=== PATIENT | female | born 1985 | race Caucasian/White ===

== ENCOUNTER → 2017-07-31 19:23 | Outpatient (REF) | payer OTHER, MEDICAID, SELFPAY | LOC: LAB 19:23 | PROVIDERS: Visit Provider Family Medicine | DX: Z34.90 Encounter for supervision of normal pregnancy, unspecified, unspecified trimester (principal) | CPT/HCPCS: 87081; 87653 ==

== ENCOUNTER → 2017-08-09 09:49 | Outpatient (CLI) | payer OTHER, MEDICAID, SELFPAY ==
--- NOTE | 2017-08-09 | DI.US.S_ITS ---
PROCEDURE: US OB LIMITED INDICATIONS: SIZE GREATER THAN DATES OUTSIDE/PRIOR DATING DATA: Last menstrual period (LMP): November 17, 2016. LMP-based estimated date of delivery (CARMEN): August 24, 2017. First dating scan (date and location): January 08, 2017 at [facility]. Estimated date of delivery (CARMEN) from first dating scan: August 26, 2017. . TECHNIQUE: Real-time scanning was performed of the fetus, with image documentation and biometric measurements. Endovaginal scanning: No COMPARISON: None. FINDINGS: General: A single living intrauterine gestation is present. Presentation: Breech. Placenta: Placental position is anterior, without previa. Amniotic fluid index: 27.6 cm, normal range is 5-24 cm. heart rate: 130 beats per minute. Maternal cervical canal: Not well-seen. biometrics: Biparietal diameter: 39 weeks 2 days Head circumference: Greater than 41 weeks Abdominal circumference: 41 weeks 3 days Femur length: 38 weeks 2 days Estimated gestational age from initial scan: 37 weeks 4 days Composite gestational age from present scan: 39 weeks 5 days Estimated weight and percentile: 4158 g; 99th percentile Measurement variability for biometric dating: +/- 7 days from 14 weeks to 15 weeks 6 days gestation, +/- 10 days from 16 weeks to 21 weeks 6 days gestation, +/- 2 weeks from 22 weeks to 27 weeks 6 days gestation, +/- 3 weeks for 28 weeks gestation or later. weight reference: 4500 g or EFW >90/95% is considered macrosomia or large for gestational age. EFW <10% is small for gestational age. EFW 5% or less is considered intra-uterine growth restriction. Other: Not applicable. IMPRESSION: Single living IUP redemonstrated and interval growth is greater than expected with the estimated weight 99th percentile. Macrosomia cannot be excluded. Amniotic fluid index at the 98th percentile. Dictated by: Pa PURVISA Interpreted: Corina Driscoll MD on 08/09/2017 at 11:31 Approved by: Corina Driscoll MD, PhD on 08/10/2017 at 9:26
--- NOTE | 2017-08-09 | DI.US.S_ITS ---
PROCEDURE: US ABDOMEN COMPLETE INDICATIONS: RIGHT UPPER QUADRANT PAIN TECHNIQUE: Real-time scanning was performed of the abdominal and retroperitoneal organs, with image documentation. COMPARISON: None. FINDINGS: Liver: Liver is normal in size and homogeneous in echotexture. Gallbladder: No gallstones identified. Normal gallbladder wall. No pericholecystic fluid. Negative sonographic Jackson sign. Biliary ducts: Intrahepatic bile ducts are non-dilated. Extrahepatic bile duct caliber measures 5.2 mm. Normal is 6-7 mm or less in diameter, or 10 mm or less post-cholecystectomy. Pancreas: Visualized portions of the pancreas are sonographically normal. Spleen: Spleen is enlarged in size at 13.2 cm and homogeneous in echotexture. Rounded subcentimeter hypoechoic mass present centrally. Kidneys: Kidneys are normal in size and echotexture. Right kidney measures 11.2 cm long; left kidney measures 10.6 cm long. No hydronephrosis or nephrolithiasis. No solid masses. Aorta: Visualized aorta is normal in caliber at less than 3 cm. Iliacs: Proximal common iliac arteries are normal in caliber at less than 2.5 cm. IVC: Intrahepatic inferior vena cava is patent. Miscellaneous: No free abdominal fluid. IMPRESSION: 1. Mild sonographic splenomegaly is present and there is a subcentimeter hypoechoic focus within the spleen centrally. A mass cannot be excluded. If indicated CT could be performed for further assessment, otherwise continued sonographic surveillance is recommended. 2. No source for right upper quadrant pain identified. Dictated by: Pa IBRAHIM Interpreted: Corina Driscoll MD on 08/09/2017 at 11:27 Approved by: Corina Driscoll MD, PhD on 08/10/2017 at 9:26
== END ==
PROVIDERS: Family Provider Family Medicine; PCP Family Medicine; Visit Provider Family Medicine
DX: O36.63X0 Maternal care for excessive fetal growth, third trimester, not applicable or unspecified (principal); O26.893 Other specified pregnancy related conditions, third trimester; R10.11 Right upper quadrant pain; Z3A.39 39 weeks gestation of pregnancy
CPT/HCPCS: 76700; 76815

== ENCOUNTER 2017-08-20 18:14 | Observation (INO) | payer OTHER, MEDICAID, SELFPAY | END 2017-08-20 20:15 | disposition home or self-care (01) | PROVIDERS: Admitting Provider Family Medicine; Family Provider Family Medicine; PCP Family Medicine; Visit Provider Family Medicine | DX: Z34.83 Encounter for supervision of other normal pregnancy, third trimester (principal); Z3A.39 39 weeks gestation of pregnancy | CPT/HCPCS: 59025; 59050; G0378; G0379 ==

== ENCOUNTER 2017-08-27 18:09 | Inpatient (IN) | payer OTHER, MEDICAID, SELFPAY ==
[2017-08-27] MEDS: miSOPROStol 25 MCG TABLET VAG (19:40)
[2017-08-27 23:34] LABS: Add Manual Diff / Slide Review NO; Basophils Percent Auto 0.6 % (0-2); Eosinophils Percent Auto 0.8 % (2-4); Hematocrit 29.4 % (36-46); Hemoglobin 9.8 g/dL (12.0-16.0); Lymphocytes Percent Auto 15.4 % (25-40); Mean Corpuscular HGB Conc 33.2 % (30-36); Mean Corpuscular Hemoglobin 27.8 PG (26-34); Mean Corpuscular Volume 83.8 fL (80-100); Monocytes Percent Auto 5.5 % (3-14); Neutrophils Absolute Auto 7800 /uL (3000-5900); Neutrophils Percent Auto 77.7 % (50-75); Platelet Count 163 X10^3/uL (150-400); White Blood Cell Count 10.1 X10^3/uL (4.5-11.0)
[2017-08-28] MEDS: LACTATED RINGERS 1,000 ML 100 ML IV ×2 (05:30→06:25)
[2017-08-28 05:52] VITALS: BP 116/75; PULSE 65; RESP 16; TEMP 37
[2017-08-28 07:52] VITALS: BP 116/75; PULSE 65; RESP 16; TEMP 37
[2017-08-28] MEDS: OXYTOCIN PREMIX 30 UNIT/500 ML PLAST..BAG IV (08:20)
[2017-08-28] MEDS: ONDANSETRON 4 MG/2 ML INJ IV ×2 (09:46→20:35)
--- NOTE | 2017-08-28 13:33 | PM.OBPRVD ---
Events: Labor Induction Delivery date: 08/28/17 Intrapartal events: None Induction method: per misoprostol protocol Delivery monitor: external FHT and external uterine Route of delivery: Episiotomy description: None Laceration description: None Estimated blood loss (mL): 250 Anesthesia type: Epidural Narrative: Identifying data this is a 32-year-old at 40 and 4 7 weeks as he gestational age with suspected 9 lb or greater fetus who is brought in for cervical ripening. She had an unremarkable other than 1st trimester mom had appendectomy without knowledge of . She was referred to genetic counseling at and cell free DNA was negative XX chromosomes. Patient received 1 dose of Cytotec and had progressive uterine contractions to the point that at approximately 5:30 a.m. she was requesting an epidural and was felt to be in active labor at that time. GBS negative mom, Rh positive mom, status post Tdap, status post flu shot, normal glucose tolerance test Stage I lasted 6 hr and 37 min Patient was noted to be in active labor after 1 Cytotec dose was placed on the day prior to delivery. She was requesting epidural was found to be 5 cm dilated at approximately 5:30 a.m. and felt to be active at that time. She was having contractions every 2-3 minutes. Epidural was placed at 6:05 a.m. with excellent analgesia. She received 1 bolus during stage I. Patient was noted to be complete at 12:07 a.m. with still an intact bag of water. She had spontaneous rupture membranes at 11:30 a.m. showing clear fluid and then subsequently had delivery of the fore bag and it ruptured at that time. She was ruptured for an hour and 35 min prior to delivery and it was clear fluid. She began pushing at 12:14 p.m.. External heart monitor was used throughout this stage and showed a baseline in the 130s to 140s with accelerations and moderate variability and occasional orally variable deceleration. Category 1 tracing throughout stage I. Pitocin was begun at approximately 8:30 a.m. and maximum on a Pitocin was 6 mu Stage II lasted 51 min Mom had excellent analgesia during this stage and good pushing effort. External tocometer heart monitor were used. Contractions were every 2-4 minutes and patient was able to feel pressure. Pitocin was at 5-6 mu throughout this stage. External heart monitor showed baseline in the 120s to 140s with moderate variability with deceleration to 100 with pushing. Category 1 tracing. Mom was affectively able to push the baby down and was able to keep the baby on the perineum. Baby was delivered in RASHEL position. I palpated for cord and there was no nuchal cord and then anterior and posterior shoulder were delivered. Baby was vigorous at delivery with Apgars 8 at 1 min and 9 at 5 min. Weight is pending. Baby was suctioned on mom's chest but was able to cry and clear airway on her own. There was an intact perineum. There were no cervical or vaginal tears. There is a very small skid musa right periurethral that was not bleeding and was not fixed. Stage III lasted 5 min Normal spontaneous vaginal delivery of an intact mildly calcified placenta with a central cord insertion and a 3 vessel cord. There was 250 cc of blood loss. There were no vaginal, cervical or perineal lacerations. Sponge and needle count were accurate and at the time of this dictation both mom and baby are in stable condition Plan for aftercare: with mom, at breast
--- NOTE | 2017-08-28 13:45 | PM.OBHP.1 ---
OB HPI History of Present Illness Chief complaint: LABOR AND DELIVERY Narrative: Dennis Martines is a 32 year old female is 40 and 4 7 weeks estimated gestational age based on LMP and 1st trimester ultrasound who presents to Labor and delivery for cervical ripening. She has suspected macrosomic baby but otherwise unremarkable . Unremarkable other than 1st trimester had appendectomy before she knew she was . She was sent to [facility] for genetic counseling. They did not have other recommendations. She had cell free DNA performed which showed normal XX chromosome. She had a normal 20 week ultrasound. Serology was negative. She is Rh positive, antibody screen negative, GBS negative, normal glucose tolerance test, negative hepatitis-B, hepatitis-C, VDRL, GC and Chlamydia, Pap smear, HIV. Evaluation Evaluation Laboratory results: Laboratory Tests 08/27/17 08/27/17 23:15 23:15 WBC 10.1 RBC 3.50 L Hgb 9.8 L Hct 29.4 L MCV 83.8 MCH 27.8 MCHC 33.2 RDW 16.0 H Plt Count 163 Neut % (Auto) 77.7 H Lymph % (Auto) 15.4 L [place] % (Auto) 5.5 Eos % (Auto) 0.8 L Baso % (Auto) 0.6 Neut # (Auto) 7800 H Blood Type A Positive Antib[facility] Screen [facility] Social History Smoking Status: Never smoker Meds Home Medications Medication Instructions Recorded Confirmed Type Vitamins (PRENAVITE) 1 tab PO QDAY #0 12/28/15 08/27/17 History acyclovir 300 mg PO TID 08/20/17 08/27/17 History ferrous sulfate 1 tab PO BID 08/20/17 08/27/17 History ranitidine HCl 1 tab PO BID 08/20/17 08/27/17 History Allergies Allergy/AdvReac Type Severity Reaction Status Date / Time loratadine [LORATADINE] Allergy Severe Anaphylaxis Verified 08/27/17 20:30 nortriptyline [NORTRIPTYLINE] Allergy Severe Anaphylaxis Verified 08/27/17 20:30 soy [SOY] Allergy Severe Anaphylaxis Verified 08/27/17 20:30 codeine [CODEINE] Allergy Intermediate Vomiting Verified 08/27/17 20:30 egg Allergy Intermediate Nausea Verified 08/27/17 20:30 hydrocodone [From VICODIN] Allergy Intermediate Vomiting Verified 08/27/17 20:30 oxycodone [OXYCODONE] Allergy Intermediate Vomiting Verified 08/27/17 20:30 prochlorperazine Allergy Intermediate Vomiting Verified 08/27/17 20:30 [PROCHLORPERAZINE] Sulfa (Sulfonamide Allergy Intermediate Hives Verified 08/27/17 20:30 Antibiotics) [SULFA (SULFONAMIDE ANTIBIOTICS)] trimethoprim [TRIMETHOPRIM] Allergy Intermediate Vomiting Verified 08/27/17 20:30 mirtazapine [MIRTAZAPINE] Allergy Unknown Vomiting Unverified 08/20/17 18:39 Review of Systems Review of Systems No change in discharge. No leaking, no bleeding, baby has been active. Occasional headaches but no abdominal pain. Occasional contractions but nothing regular. No change in swelling of lower extremities and no upper extremity swelling. All systems reviewed & are unremarkable except as noted in HPI and below Exam Narrative Exam Narrative: Afebrile, vital signs are stable HEENT: Unremarkable other than poor dentition Neck: Supple without thyromegaly Chest: Clear to auscultation without wheezes rhonchi or crackles Cor: Regular rate and rhythm without a murmur Abdomen: Gravid, vertex, estimated weight 9 lb Extremities: 1 to 2+ pitting edema, DTRs 3+ at the patella, no clonus Cervical exam 7 cm dilated, 100% effaced, ballotable with a large amount a room behind baby's head through the cervix and had not well applied to cervix The heart tones baseline 130 to 140s with moderate variability and accelerations without decelerations; category 1 tracing Objective Labs Result Diagrams: 08/27/17 23:15 Labs: Laboratory Results - last 24 hr 08/27/17 08/27/17 23:15 23:15 WBC 10.1 RBC 3.50 L Hgb 9.8 L Hct 29.4 L MCV 83.8 MCH 27.8 MCHC 33.2 RDW 16.0 H Plt Count 163 Neut % (Auto) 77.7 H Lymph % (Auto) 15.4 L [place] % (Auto) 5.5 Eos % (Auto) 0.8 L Baso % (Auto) 0.6 Neut # (Auto) 7800 H Blood Type A Positive Antibody Screen Negative Assessment and Plan Plan: Plan: 32-year-old at 40 and 4 7 weeks estimated gestational age with good dates in early active labor Will begin Pitocin Baby is still very high and so we will wait till comes down before perform artificial rupture of membranes Will continue with epidural. Category 1 tracing. Will continue with external heart monitor and tocometer GBS negative mom. Rh positive mom
--- NOTE | 2017-08-28 13:53 | P.HPOB_ITS ---
OB HPI History of Present Illness Chief complaint: LABOR AND DELIVERY Narrative: Dennis Martines is a 32 year old female is 40 and 4 7 weeks estimated gestational age based on LMP and 1st trimester ultrasound who presents to Labor and delivery for cervical ripening. She has suspected macrosomic baby but otherwise unremarkable . Unremarkable other than 1st trimester had appendectomy before she knew she was . She was sent to [facility] for genetic counseling. They did not have other recommendations. She had cell free DNA performed which showed normal XX chromosome. She had a normal 20 week ultrasound. Serology was negative. She is Rh positive, antibody screen negative, GBS negative, normal glucose tolerance test, negative hepatitis-B, hepatitis-C, VDRL, GC and Chlamydia, Pap smear, HIV. Evaluation Evaluation Laboratory results: Laboratory Tests 08/27/17 08/27/17 23:15 23:15 WBC 10.1 RBC 3.50 L Hgb 9.8 L Hct 29.4 L MCV 83.8 MCH 27.8 MCHC 33.2 RDW 16.0 H Plt Count 163 Neut % (Auto) 77.7 H Lymph % (Auto) 15.4 L [place] % (Auto) 5.5 Eos % (Auto) 0.8 L Baso % (Auto) 0.6 Neut # (Auto) 7800 H Blood Type A Positive Antibody Screen [facility] Social History Smoking Status: Never smoker Meds Home Medications Medication Instructions Recorded Confirmed Type Vitamins (PRENAVITE) 1 tab PO QDAY #0 12/28/15 08/27/17 History acyclovir 300 mg PO TID 08/20/17 08/27/17 History ferrous sulfate 1 tab PO BID 08/20/17 08/27/17 History ranitidine HCl 1 tab PO BID 08/20/17 08/27/17 History Allergies Allergy/AdvReac Type Severity Reaction Status Date / Time loratadine [LORATADINE] Allergy Severe Anaphylaxis Verified 08/27/17 20:30 nortriptyline [NORTRIPTYLINE] Allergy Severe Anaphylaxis Verified 08/27/17 20:30 soy [SOY] Allergy Severe Anaphylaxis Verified 08/27/17 20:30 codeine [CODEINE] Allergy Intermediate Vomiting Verified 08/27/17 20:30 egg Allergy Intermediate Nausea Verified 08/27/17 20:30 hydrocodone [From VICODIN] Allergy Intermediate Vomiting Verified 08/27/17 20:30 oxycodone [OXYCODONE] Allergy Intermediate Vomiting Verified 08/27/17 20:30 prochlorperazine Allergy Intermediate Vomiting Verified 08/27/17 20:30 [PROCHLORPERAZINE] Sulfa (Sulfonamide Allergy Intermediate Hives Verified 08/27/17 20:30 Antibiotics) [SULFA (SULFONAMIDE ANTIBIOTICS)] trimethoprim [TRIMETHOPRIM] Allergy Intermediate Vomiting Verified 08/27/17 20: 30 mirtazapine [MIRTAZAPINE] Allergy Unknown Vomiting Unverified 08/20/17 18:39 Review of Systems Review of Systems No change in discharge. No leaking, no bleeding, baby has been active. Occasional headaches but no abdominal pain. Occasional contractions but nothing regular. No change in swelling of lower extremities and no upper extremity swelling. All systems reviewed & are unremarkable except as noted in HPI and below Exam Narrative Exam Narrative: Afebrile, vital signs are stable HEENT: Unremarkable other than poor dentition Neck: Supple without thyromegaly Chest: Clear to auscultation without wheezes rhonchi or crackles Cor: Regular rate and rhythm without a murmur Abdomen: Gravid, vertex, estimated weight 9 lb Extremities: 1 to 2+ pitting edema, DTRs 3+ at the patella, no clonus Cervical exam 7 cm dilated, 100% effaced, ballotable with a large amount a room behind baby's head through the cervix and had not well applied to cervix The heart tones baseline 130 to 140s with moderate variability and accelerations without decelerations; category 1 tracing Objective Labs Result Diagrams: 08/27/17 23:15 Labs: Laboratory Results - last 24 hr 08/27/17 08/27/17 23:15 23:15 WBC 10.1 RBC 3.50 L Hgb 9.8 L Hct 29.4 L MCV 83.8 MCH 27.8 MCHC 33.2 RDW 16.0 H Plt Count 163 Neut % (Auto) 77.7 H Lymph % (Auto) 15.4 L [place] % (Auto) 5.5 Eos % (Auto) 0.8 L Baso % (Auto) 0.6 Neut # (Auto) 7800 H Blood Type A Positive Antibody Screen Negative Assessment and Plan Plan: Plan: 32-year-old at 40 and 4 7 weeks estimated gestational age with good dates in early active labor Will begin Pitocin Baby is still very high and so we will wait till comes down before perform artificial rupture of membranes Will continue with epidural. Category 1 tracing. Will continue with external heart monitor and tocometer GBS negative mom. Rh positive mom
[2017-08-28] MEDS: IBUPROFEN 600 MG TABLET PO ×2 (17:39→23:52)
[2017-08-28] MEDS: METHYLERGONOVINE 0.2 MG TABLET PO (19:21)
[2017-08-29] MEDS: METHYLERGONOVINE 0.2 MG TABLET PO ×2 (02:02→07:34)
[2017-08-29 06:31] LABS: Add Manual Diff / Slide Review NO; Basophils Percent Auto 0.4 % (0-2); Eosinophils Percent Auto 0.6 % (2-4); Hematocrit 27.3 % (36-46); Lymphocytes Percent Auto 12.9 % (25-40); Mean Corpuscular HGB Conc 32.8 % (30-36); Mean Corpuscular Hemoglobin 27.3 PG (26-34); Mean Corpuscular Volume 83.2 fL (80-100); Monocytes Percent Auto 5.5 % (3-14); Neutrophils Absolute Auto 9700 /uL (3000-5900); Neutrophils Percent Auto 80.6 % (50-75); Platelet Count 151 X10^3/uL (150-400); Red Blood Cell Count 3.29 X10^6/uL (4.0-5.2); Red Cell Distribution Width 15.6 % (11.6-14.8)
[2017-08-29] MEDS: IBUPROFEN 600 MG TABLET PO ×2 (07:34→13:34)
[2017-08-29] MEDS: DOCUSATE 250 MG CAPSULE PO (09:29)
[2017-08-29] MEDS: FERROUS GLUCONATE 324 MG TABLET PO (09:29)
[2017-08-29] MEDS: PRENATAL VIT,CALC/IRON/FOLIC 1 TABLET 1 TAB PO (09:29)
--- NOTE | 2017-08-29 09:43 | PM.DS.1 ---
History of Present Illness Date Patient Seen: 08/29/17 Time Patient Seen: 09:43 Chief complaint: LABOR AND DELIVERY Narrative: See H&P and delivery note Discharge Providers Date of admission: 08/27/17 18:09 Primary care physician: Rosa Peralta MD Consults: 08/27/17 19:52 Consult to Anesthesiology Urgent Comment: Consulting Provider: Franki Villanueva Reason For Exam: Preoperative evaluation Reason for consultation: pain management 08/28/17 13:22 Consult to Nuclear Physician Routine Comment: Discharge provider: Bridger Ceja MD Summary Discharge Diagnosis: Term now delivered related anemia. History of medication intolerance. Esophageal reflux History of herpes Hospital Course: Admitted in active labor monitored expectantly, received epidural analgesia delivered a large baby without complications. Has done well some pain difficult to control because of medication intolerance but managing. Also choosing to nurse and that is a bit fitful but okay. Had fairly heavy persistent bleeding early on but that has settled down fairly normal output at this point. Anxious for discharge. Status at Discharge Cognitive/behavioral status at discharge: Normal Functional status at discharge: independent ambulation Overall status at discharge: patient is back to baseline Time Spent with Patient Greater than 30 minutes Exam Narrative Exam Narrative: Healthy appearing in no acute distress sitting up in bed conversing appropriately. Head and neck is benign chest is clear heart regular without murmur abdomen soft findings firm at umbilicus slight tender. Extremities without edema, normal reflexes skin clear. Hematocrit dropped about 2 points over night. Objective Labs Result Diagrams: 08/29/17 06:20 Labs: Laboratory Results - last 24 hr 08/29/17 06:20 WBC 12.0 H RBC 3.29 L Hgb 9.0 L Hct 27.3 L MCV 83.2 MCH 27.3 MCHC 32.8 RDW 15.6 H Plt Count 151 Neut % (Auto) 80.6 H Lymph % (Auto) 12.9 L [place] % (Auto) 5.5 Eos % (Auto) 0.6 L Baso % (Auto) 0.4 Neut # (Auto) 9700 H Discharge Plan Discharge Plan Patient Disposition: Home, Self-Care Discharge Med Rec/Prescriptions Prescriptions: New acetaminophen 325 mg Tablet 650 mg PO Q6HR PRN (Reason: Pain, Mild (1-3)) Qty: 100 RF: 0 ibuprofen 600 mg Tablet 600 mg PO Q6HR PRN (Reason: Pain, Mild (1-3)) Qty: 100 RF: 0 Continue Vitamins (PRENAVITE) 1 tab PO QDAY Qty: 0 RF: 0 acyclovir 400 mg tablet 300 mg PO TID RF: 0 ranitidine HCl 150 mg tablet 1 tab PO BID RF: 0 ferrous sulfate 324 mg (65 mg iron) tablet,delayed release (DR/EC) 1 tab PO BID RF: 0 Provider Discharge Instructions Diet: Diet as Tolerated Activity: As tolerated Discharge Data Primary Care Provider: Rosa Peralta Attending Provider: Rosa Peralta Admit Date/Time: 08/27/17 18:09
== END 2017-08-29 13:40 | disposition home or self-care (01) | DRG 560 ==
PROVIDERS: Admitting Provider Family Medicine; Family Provider Family Medicine; PCP Family Medicine; Visit Provider Family Medicine
DX: O80 Encounter for full-term uncomplicated delivery (principal); Z37.0 Single live birth; Z3A.40 40 weeks gestation of pregnancy
CPT/HCPCS: 01967; 36415; 59050; 85025; 86850; 86900; 86901; G0379; J2405; J2590

== ENCOUNTER → 2017-11-05 07:51 | Outpatient (CLI) | payer OTHER, MEDICAID, SELFPAY ==
--- NOTE | 2017-11-05 | DI.US.S_ITS ---
PROCEDURE: US ABDOMEN COMPLETE INDICATIONS: SPLENOMEGALY TECHNIQUE: Real-time scanning was performed of the abdominal and retroperitoneal organs, with image documentation. COMPARISON: [facility], US, US ABDOMEN COMPLETE, 08/09/2017, 10:13. FINDINGS: Liver: Liver is normal in size and homogeneous in echotexture. Gallbladder: No gallstones identified. Normal gallbladder wall. No pericholecystic fluid. Negative sonographic Jackson sign. Biliary ducts: Intrahepatic bile ducts are non-dilated. Extrahepatic bile duct caliber measures 2.4 mm. Normal is 6-7 mm or less in diameter, or 10 mm or less post-cholecystectomy. Pancreas: Visualized portions of the pancreas are sonographically normal. Spleen: Spleen is normal in size and homogeneous in echotexture. An 8 mm hypoechoic avascular solid focus again visualized within the spleen which appears unchanged. Kidneys: Kidneys are normal in size and echotexture. Right kidney measures 10.2 cm long; left kidney measures 11.5 cm long. No hydronephrosis or nephrolithiasis. No solid masses. Aorta: Visualized aorta is normal in caliber at less than 3 cm. Iliacs: Proximal common iliac arteries are normal in caliber at less than 2.5 cm. IVC: Intrahepatic inferior vena cava is patent. Miscellaneous: No free abdominal fluid. IMPRESSION: 1. The subcentimeter hypoechoic focus involving the spleen appears unchanged. Continued sonographic surveillance recommended. Dictated by: Pa IBRAHIM Interpreted: Riley Cavanaugh MD on 11/05/2017 at 9:14 Approved by: Riley Cavanaugh M.D. on 11/05/2017 at 21:46
== END ==
PROVIDERS: Family Provider Family Medicine; PCP Family Medicine; Visit Provider Family Medicine
DX: R16.1 Splenomegaly, not elsewhere classified (principal)
CPT/HCPCS: 76700

== ENCOUNTER 2017-11-13 01:03 | Emergency (ER) | payer OTHER, MEDICAID, SELFPAY ==
--- NOTE | 2017-11-13 01:06 | ED_ITS ---
HPI - Abdominal Pain General Chief Complaint: Back Pain/Injury Stated Complaint: abdominal pain Time Seen by Provider: 11/13/17 01:06 Source: patient Mode of arrival: ambulatory Limitations: no limitations History of Present Illness HPI narrative: 32-year-old female here for evaluation of bilateral lower back of lower abdominal pain. She states that it started yesterday. Has had lower back pain in the past but this feels different than her normal pain. Did try some medical marijuana for her symptoms prior to arrival which has not helped. She is 2 months . Has not had a regular menstrual cycle since then. She is not currently on control. Denies any urinary or bowel or vaginal symptoms. Related Data Home Medications Medication Instructions Recorded Confirmed Vitamins (PRENAVITE) 1 tab PO QDAY #0 12/28/15 11/13/17 acyclovir 300 mg PO TID 08/20/17 08/27/17 ferrous sulfate 1 tab PO BID 08/20/17 08/27/17 ranitidine HCl 1 tab PO BID 08/20/17 08/27/17 Previous Rx's Medication Instructions Recorded acetaminophen 650 mg PO Q6HR PRN #100 tab 08/29/17 ibuprofen 600 mg PO Q6HR PRN #100 tab 08/29/17 Allergies Allergy/AdvReac Type Severity Reaction Status Date / Time loratadine [LORATADINE] Allergy Severe Anaphylaxis Verified 11/13/17 01:56 nortriptyline [NORTRIPTYLINE] Allergy Severe Anaphylaxis Verified 11/13/17 01:56 soy [SOY] Allergy Severe Anaphylaxis Verified 11/13/17 01:56 codeine [CODEINE] Allergy Intermediate Vomiting Verified 11/13/17 01:56 egg Allergy Intermediate Nausea Verified 11/13/17 01:56 hydrocodone [From VICODIN] Allergy Intermediate Vomiting Verified 11/13/17 01:56 oxycodone [OXYCODONE] Allergy Intermediate Vomiting Verified 11/13/17 01:56 prochlorperazine Allergy Intermediate Vomiting Verified 11/13/17 01:56 [PROCHLORPERAZINE] Sulfa (Sulfonamide Allergy Intermediate Hives Verified 11/13/17 01:56 Antibiotics) [SULFA (SULFONAMIDE ANTIBIOTICS)] trimethoprim [TRIMETHOPRIM] Allergy Intermediate Vomiting Verified 11/13/17 01: 56 mirtazapine [MIRTAZAPINE] Allergy Unknown Vomiting Unverified 11/13/17 01:56 Review of Systems Constitutional Denies fatigue and Denies fever(s) ENT Ears, Nose, Mouth, and Throat: Denies vertigo and Denies dizziness Cardiovascular Denies chest pain and Denies dyspnea Respiratory Denies dyspnea Gastrointestinal Gastrointestinal: Reports abdominal pain, Denies constipation, Denies cramping, Denies nausea and Denies vomiting Genitourinary Denies dysuria and Denies vaginal discharge Musculoskeletal Denies myalgias and Denies arthralgias Integumentary/Breasts Denies lesions and Denies rash Neurologic Denies confusion, Denies vertigo and Denies dizziness Psychiatric Denies confusion Endocrine Denies fatigue Hematologic/Lymphatic Denies easy bleeding and Denies easy bruising [facility] Medical History Splenic mass (Acute) Surgical History No pertinent past surgical history (Acute) Social History Smoking Status: Never smoker Exam Initial Vital Signs Initial Vital Signs: Vital Signs Temperature 97.5 F L 11/13/17 01:15 Pulse Rate 64 11/13/17 01:15 Respiratory Rate 16 11/13/17 01:15 Blood Pressure 116/75 11/13/17 01:15 Pulse Oximetry 98 11/13/17 01:15 Const General: cooperative, healthy appearing, well developed, well groomed and No acute distress HENNC Head: normal to inspection and normocephalic Resp Effort & Inspection: normal respiratory effort Auscultation: clear to auscultation bilaterally Cardio Rate: regular rate Rhythm: regular rhythm Heart Sounds: no murmurs Pulses: radial pulses present GI Inspection: non-distended Palpation: soft, No firm and tender (Bilateral lower abdominal tenderness without rebound or guarding) Back/Spine/Pelvis Back: No CVA tenderness Other: Bilateral lower paraspinal tenderness Skin Lesions: no lesions Rashes: no rashes Neuro General: alert, awake and oriented x3 Cognition: normal cognition Speech: speech normal Motor: muscle tone normal throughout Sensory Exam: no sensory deficits noted Extrem General: normal to inspection and capillary refill normal Psych Appearance: grossly normal and well kempt Course Orders Ordered: ED Orders 11/13/17 01:45 Complete Blood Count AUTO DIFF Stat Comprehensive Metabolic Panel Stat Lipase Stat 11/13/17 01:50 CT abdomen pelvis w con Stat Discontinued Medications Sodium Chloride (Normal Saline 0.9%) 1,000 mls @ 1,000 mls/hr IV BOLUS ONE Stop: 11/13/17 02:05 Last Admin: 11/13/17 01:45 Dose: 1,000 mls/hr Vital Signs - 8 hr 11/13/17 01:15 Temperature 97.5 F L Pulse Rate 64 Respiratory Rate 16 Blood Pressure 116/75 Pulse Oximetry 98 MDM - Abdominal Pain Lab Data Attestation: I reviewed the patient's lab results. Result diagrams: 11/13/17 01:45 11/13/17 01:45 Lab Results 11/13/17 11/13/17 Range/Units 01:45 01:45 WBC 7.5 (4.5-11.0) X10^3/uL RBC 4.45 (4.0-5.2) X10^6/uL Hgb 13.0 (12.0-16.0) g/dL Hct 38.7 (36-46) % MCV 86.9 (80-100) fL MCH 29.2 (26-34) PG MCHC 33.5 (30-36) % RDW 17.0 H (11.6-14.8) % Plt Count 167 (150-400) X10^3/uL Neut % (Auto) 45.9 L (50-75) % Lymph % (Auto) 42.8 H (25-40) % [place] % (Auto) 7.2 (3-14) % Eos % (Auto) 2.9 (2-4) % Baso % (Auto) 1.2 (0-2) % Neut # (Auto) 3400 (5463-9275) /uL Sodium 142 (137-145) mmol/L Potassium 4.0 (3.4-5.1) mmol/L Chloride 105 (98-107) mmol/L Carbon Dioxide 27 (22-32) mmol/L BUN 20 H (7-17) mg/dL Creatinine 0.90 (0.52-1.04) mg/dL Estimated GFR > 60.0 (>60) mL/min BUN/Creatinine Ratio 22.2 H (6-22) Glucose 89 (70-100) mg/dL Calcium 9.6 (8.4-10.2) mg/dL Total Bilirubin 0.3 (0.2-1.3) mg/dL AST 12 L (14-36) IU/L ALT 26 (9-52) IU/L Alkaline Phosphatase 59 (38-126) U/L Total Protein 7.3 (6.3-8.2) g/dL Albumin 4.6 (3.5-5.0) g/dL Globulin 2.7 (1.7-4.1) g/dL Albumin/Globulin Ratio 1.7 (1.0-2.8) Lipase 96 (23-300) U/L Point of care testing: Urine Dip Bedside Urine Glucose Negative Bedside Urine Bilirubin - Negative Bedside Urine Ketone - Negative Urine Specific [place] 1.020 Bedside Urine Occult Blood - Negative Bedside Urine pH 7.0 Bedside Urine Protein - Negative Bedside Urine Urobilinogen - Negative Bedside Urine Nitrite - Negative Bedside Urine Leukocytes - Negative Esterase Imaging Data CT scan - abdomen: Radiologist's impression: Hepatomegaly. No diverticulitis or mechanical small-bowel obstruction. Prior appendectomy be. Scattered predominantly fluid- filled small bowel segments, nonspecific. Large amount of intracolonic stool. MDM Narrative Medical decision making narrative: Labs unremarkable. Urine unremarkable. test is negative. CT scan shows no acute pathology. Does show a large amount of intracolonic stool. This could account for the symptoms she is having. She had a relatively benign abdominal exam. Discussed all this with the patient. We did discuss the use of laxatives to help with the stool burden. Hold on further workup for now. She is given return precautions. She expressed understanding and agreement with plan. Discharge Plan Departure Patient Disposition: Home Clinical Impression: Abdominal pain Instructions: Acute Abdominal Pain Activity Restrictions/Additional Instructions: Recommend that you start taking a laxative such as MiraLax. You can buy this [id number] had any drug store. Make sure your increase your fluid intake. Call your primary care doctor for a follow-up. Return to the emergency department for any new or worsening symptoms Prescriptions: No Action Vitamins (PRENAVITE) 1 tab PO QDAY Qty: 0 RF: 0 acyclovir 400 mg tablet 300 mg PO TID RF: 0 ranitidine HCl 150 mg tablet 1 tab PO BID RF: 0 ferrous sulfate 324 mg (65 mg iron) tablet,delayed release (DR/EC) 1 tab PO BID RF: 0 acetaminophen 325 mg Tablet 650 mg PO Q6HR PRN (Reason: Pain, Mild (1-3)) Qty: 100 RF: 0 ibuprofen 600 mg Tablet 600 mg PO Q6HR PRN (Reason: Pain, Mild (1-3)) Qty: 100 RF: 0
[2017-11-13 01:15] VITALS: BP 116/75; PULSE 64; RESP 16; TEMP 36.4; O2SAT 98; BMI 21.1
--- NOTE | 2017-11-13 01:20 | PC.NURSE ---
Pt Pregnacy test neg.
[2017-11-13] MEDS: SODIUM CHLORIDE 0.9% 1,000 ML 1000 ML IV (01:45)
--- NOTE | 2017-11-13 01:50 | DI.CT.S_ITS ---
PROCEDURE: CT ABDOMEN PELVIS W CON INDICATIONS: right-sided abdominal pain TECHNIQUE: After the administration of intravenous contrast, 5 mm thick sections acquired from the diaphragm to the symphysis. 5 mm coronal and sagittal reformats were acquired. For radiation dose reduction, the following was used: automated exposure control, adjustment of mA and/or kV according to patient size. COMPARISON: None. FINDINGS: Image quality: Excellent. ABDOMEN: Lung bases: Lung bases are clear. Heart size is normal. Solid organs: Liver is mildly enlarged in size at 20 cm craniocaudad, and normal in enhancement. Gallbladder appears normal. Biliary system is non dilated. Pancreas enhances normally. Spleen is normal in size and enhancement. No adrenal nodules. Kidneys demonstrate normal size and enhancement, without hydronephrosis. Peritoneum and bowel: Bowel loops demonstrate normal wall thickness and caliber. No free fluid or air. Nodes and vessels: No retroperitoneal or mesenteric adenopathy by size criteria. Aorta and inferior vena cava are normal in size. Miscellaneous: No ventral hernias. PELVIS: Genitourinary: Bladder wall thickness is normal. Miscellaneous: No inguinal hernias or adenopathy. Surgical staple line at the right lower quadrant suggest prior appendectomy. Bones: No suspicious bony lesions. No vertebral body compression fractures. IMPRESSION: A definite source of right-sided abdominal pain is not seen however the hepatic craniocaudad length of the liver is 20 cm and the inferior right hepatic liver margin extends into the upper iliac fossa. The liver appears free of focal lesion, no biliary distention or calcified gallstones are seen. Presumed prior appendectomy in the pattern of surgical staple line right lower quadrant. Dictated by: Matt Kline M.D. on 11/13/2017 at 9:04 Approved by: Matt Kline M.D. on 11/13/2017 at 9:06
--- NOTE | 2017-11-13 01:54 | PC.NURSE ---
Low back worse in R side, increase pain with deep palpation. Low to mid back pain radiates to bilateral upper abdomen but no guarding, rigid abdomen. Reports nausea but no emesis, denies urinary sx, vag bleeding.
[2017-11-13 02:01] LABS: Add Manual Diff / Slide Review NO; Basophils Percent Auto 1.2 % (0-2); Eosinophils Percent Auto 2.9 % (2-4); Hematocrit 38.7 % (36-46); Lymphocytes Percent Auto 42.8 % (25-40); Mean Corpuscular HGB Conc 33.5 % (30-36); Mean Corpuscular Hemoglobin 29.2 PG (26-34); Mean Corpuscular Volume 86.9 fL (80-100); Monocytes Percent Auto 7.2 % (3-14); Neutrophils Absolute Auto 3400 /uL (3000-5900); Neutrophils Percent Auto 45.9 % (50-75); Platelet Count 167 X10^3/uL (150-400); Red Blood Cell Count 4.45 X10^6/uL (4.0-5.2); White Blood Cell Count 7.5 X10^3/uL (4.5-11.0)
[2017-11-13 02:05] LABS: Alanine Aminotransferase 26 IU/L (9-52); Albumin 4.6 g/dL (3.5-5.0); Albumin Globulin Ratio 1.7 (1.0-2.8); Alkaline Phosphatase 59 U/L (38-126); Aspartate Aminotransferase 12 IU/L (14-36); BUN Creatinine Ratio 22.2 (6-22); Bilirubin Total 0.3 mg/dL (0.2-1.3); Blood Urea Nitrogen 20 mg/dL (7-17); Calcium 9.6 mg/dL (8.4-10.2); Carbon Dioxide 27 mmol/L (22-32); Chloride 105 mmol/L (98-107); Estimated Glomerular Filt Rate > 60.0 mL/min (>60); Globulin 2.7 g/dL (1.7-4.1); Glucose 89 mg/dL (70-100); HEMOLYSIS < 15 (0-50); Lipase 96 U/L (23-300); Sodium 142 mmol/L (137-145); Total Protein 7.3 g/dL (6.3-8.2)
[2017-11-13 03:39] VITALS: BP 98/61; PULSE 60; RESP 16; O2SAT 98
== END 2017-11-13 03:25 | disposition home or self-care (01) ==
PROVIDERS: Emergency Provider Emergency Medicine; Family Provider Family Medicine; PCP Family Medicine
DX: R10.9 Unspecified abdominal pain (principal)
CPT/HCPCS: 74177; 80053; 81003; 81025; 83690; 85025; 96360; 96361; 99283; 99285; Q9967

== ENCOUNTER → 2018-03-29 12:08 | Outpatient (CLI) | payer OTHER, MEDICAID, SELFPAY ==
--- NOTE | 2018-03-29 | DI.US.S_ITS ---
PROCEDURE: US ABDOMEN LIMITED INDICATIONS: FOLLOW-UP SPLENIC MASS TECHNIQUE: Real-time focused scanning was performed of the abdomen, with image documentation. COMPARISON: [facility], US, US ABDOMEN COMPLETE, 08/09/2017, 10:13. [facility], US, US ABDOMEN COMPLETE, 11/05/2017, 8:00. [facility], CT, CT ABDOMEN PELVIS W CON, 11/13/2017, 1:53. FINDINGS: The spleen measures within normal limits for size. Within the mid spleen, there is a nonvascular hypoechoic focus that measures 7 x 6 x 7 mm, which previously measured 8 x 7 x 8 mm. IMPRESSION: Stable subcentimeter low echogenicity splenic lesion. Given the stability and the age of the patient, this is felt most likely to be related to a benign, incidental finding. Of interest, this focus is not definitely seen on the prior CT study. Dictated by: Wale Crespo M.D. on 03/29/2018 at 13:16 Approved by: Wale Crespo M.D. on 03/29/2018 at 13:19
== END ==
PROVIDERS: Family Provider Family Medicine; PCP Family Medicine; Visit Provider Family Medicine
DX: R16.1 Splenomegaly, not elsewhere classified (principal)
CPT/HCPCS: 76705

== ENCOUNTER 2018-06-20 20:07 | Emergency (ER) | payer OTHER, MEDICAID, SELFPAY ==
[2018-06-20 20:15] VITALS: BP 120/80; PULSE 79; RESP 18; TEMP 37.2; O2SAT 98; BMI 21.7
[2018-06-20 21:28] LABS: Monotest Negative (Negative)
[2018-06-20 21:33] LABS: Influenza A and B by PCR Rapid Negative (Negative)
--- NOTE | 2018-06-20 21:43 | ED.URI ---
HPI - URI/Sore Throat <Aniyah Bergeron, [employer] - Last Filed: 06/20/18 21:49> General Chief Complaint: Upper Respiratory Symptoms Stated Complaint: HURTS TO TALK Time Seen by Provider: 06/20/18 20:50 Source: patient Mode of arrival: ambulatory Limitations: no limitations History of Present Illness HPI Narrative: The patient is a 33-year-old female with history of appendicitis depression who presents with a chief complaint of right ear pain, sore throat hurting to talk in hurting to swallow. This has been going on for 3 days. She also complains of swollen lymph nodes and some face pain on the right side. She denies any fevers nausea vomiting or diarrhea. She does complain of having urinated herself a few times recently. Chart review a straight history of urinary incontinence. She has not taken anything to feel better. Denies cough. Denies dysuria urgency or frequency. Related Data Home Medications Medication Instructions Recorded Confirmed Vitamins (PRENAVITE) 1 tab PO QDAY #0 12/28/15 11/13/17 acyclovir 300 mg PO TID 08/20/17 08/27/17 ferrous sulfate 1 tab PO BID 08/20/17 08/27/17 ranitidine HCl 1 tab PO BID 08/20/17 08/27/17 Previous Rx's Medication Instructions Recorded acetaminophen 650 mg PO Q6HR PRN #100 tab 08/29/17 ibuprofen 600 mg PO Q6HR PRN #100 tab 08/29/17 Allergies Allergy/AdvReac Type Severity Reaction Status Date / Time loratadine [LORATADINE] Allergy Severe Anaphylaxis Verified 11/13/17 01:56 nortriptyline [NORTRIPTYLINE] Allergy Severe Anaphylaxis Verified 11/13/17 01:56 soy [SOY] Allergy Severe Anaphylaxis Verified 11/13/17 01:56 codeine [CODEINE] Allergy Intermediate Vomiting Verified 11/13/17 01:56 egg Allergy Intermediate Nausea Verified 11/13/17 01:56 hydrocodone [From VICODIN] Allergy Intermediate Vomiting Verified 11/13/17 01:56 oxycodone [OXYCODONE] Allergy Intermediate Vomiting Verified 11/13/17 01:56 prochlorperazine Allergy Intermediate Vomiting Verified 11/13/17 01:56 [PROCHLORPERAZINE] Sulfa (Sulfonamide Allergy Intermediate Hives Verified 11/13/17 01:56 Antibiotics) [SULFA (SULFONAMIDE ANTIBIOTICS)] trimethoprim [TRIMETHOPRIM] Allergy Intermediate Vomiting Verified 11/13/17 01:56 mirtazapine [MIRTAZAPINE] Allergy Unknown Vomiting Unverified 11/13/17 01:56 Review of Systems <Aniyah Bergeron [facility] - Last Filed: 06/20/18 21:49> Review of Systems GENERAL: Denies chills, fatigue, malaise, fever, sweats. HEENT: See HPI RESPIRATORY: Denies dyspnea, cough, wheezing, hemoptysis, sputum. CARDIOVASCULAR: Denies chest pain, palpitations, orthopnea, edema, GASTROINTESTINAL: Denies nausea, vomiting, abdominal pain, diarrhea, constipation, melena. : see HPI MUSCULOSKELETAL: denies weakness, joint pain, or bony pain SKIN: Denies rash, skin lesions, or other NEUROLOGIC: Denies weakness, headache, numbness, change in speech, confusion, seizures, incoordination. PSYCHIATRIC: No concerning psychosocial issues. 12 point review of systems is negative except for those stated above PFSH <Aniyah Bergeron [facility] - Last Filed: 06/20/18 21:49> Social History Smoking Status: Never smoker Exam <Aniyah Bergeron [facility] - Last Filed: 06/20/18 21:49> Narrative Exam Narrative: GENERAL: This is a well-nourished, well-developed patient, no acute distress HEAD: Atraumatic. Normocephalic. No temporal or scalp tenderness. EYES: Pupils equal round and reactive. Extraocular motions intact. No scleral icterus. No injection or drainage. ENT: Nose without bleeding, purulent drainage or septal hematoma. Throat without erythema, tonsillar hypertrophy or exudate. Uvula midline. Airway patent. bilateral TMs pearly apulson. NECK: Trachea midline. No JVD or lymphadenopathy. Supple, nontender, no meningeal signs. CARDIOVASCULAR: Regular rate and rhythm RESPIRATORY: No cough. No increased respiratory effort. EXTREMITIES: No clubbing, cyanosis, or edema. No joint tenderness, effusion, or edema noted. BACK: Nontender without deformity or crepitance. No flank tenderness. NEURO: AOx3. SKIN: No rash or erythema. Initial Vital Signs Initial Vital Signs: Vital Signs Temperature 98.9 F 06/20/18 20:15 Pulse Rate 79 06/20/18 20:15 Respiratory Rate 18 06/20/18 20:15 Blood Pressure 120/80 06/20/18 20:15 Pulse Oximetry 98 06/20/18 20:15 <Sae Valles DO - Last Filed: 06/20/18 23:55> Initial Vital Signs Initial Vital Signs: Vital Signs Temperature 98.9 F 06/20/18 20:15 Pulse Rate 79 06/20/18 20:15 Respiratory Rate 18 06/20/18 20:15 Blood Pressure 120/80 06/20/18 20:15 Pulse Oximetry 98 06/20/18 20:15 Course <STACY Portlilo - Last Filed: 06/20/18 21:49> Orders Ordered: ED Orders 06/20/18 20:54 Influenza A and B by PCR Rapid Stat 06/20/18 21:15 Monotest Stat Vital Signs - 8 hr 06/20/18 20:15 06/20/18 21:47 Temperature 98.9 F 98.8 F Pulse Rate 79 67 Respiratory Rate 18 18 Blood Pressure 120/80 Blood Pressure [Right Arm] 116/75 Pulse Oximetry 98 98 <Sae Valles DO - Last Filed: 06/20/18 23:55> Orders Ordered: ED Orders 06/20/18 20:54 Influenza A and B by PCR Rapid Stat 06/20/18 21:15 Monotest Stat Vital Signs - 8 hr 06/20/18 20:15 06/20/18 21:47 Temperature 98.9 F 98.8 F Pulse Rate 79 67 Respiratory Rate 18 18 Blood Pressure 120/80 Blood Pressure [Right Arm] 116/75 Pulse Oximetry 98 98 MDM - URI/Sore Throat <STACY Portillo - Last Filed: 06/20/18 21:49> Lab Data Lab Results 06/20/18 06/20/18 Range/Units 20:54 21:15 Monoscreen Negative (Negative) Influenza A & B (PCR) Negative (Negative) Point of Care Testing Test Results Negative Rapid Strep A Negative Urine Dip Bedside Urine Glucose Negative Bedside Urine Bilirubin - Negative Bedside Urine Ketone - Negative Urine Specific [place] 1.015 Bedside Urine Occult Blood - Negative Bedside Urine pH 7.5 Bedside Urine Protein +/- 15 Bedside Urine Urobilinogen +/- 1mg Bedside Urine Nitrite - Negative Bedside Urine Leukocytes - Negative Esterase MDM Narrative Medical decision making narrative: The patient has an overall benign exam. She has a negative flu, normal UA, negative strep and negative mono. I encouraged her to keep her appointment with her PCP as scheduled on Sunday. I encouraged use of [id number] Flonase, sinus rinse and allergy medicine and her Sudafed. I discussed at length symptomatic care, pushing fluids etc. I encouraged her to follow up with her PCP and return precautions the emergency department: Chest pain shortness of breath or acute concerns. Patient has no questions or concerns. <Sae Valles, - Last Filed: 06/20/18 23:55> Lab Data Lab Results 06/20/18 06/20/18 Range/Units 20:54 21:15 Monoscreen Negative (Negative) Influenza A & B (PCR) Negative (Negative) Point of Care Testing Test Results Negative Rapid Strep A Negative Urine Dip Bedside Urine Glucose Negative Bedside Urine Bilirubin - Negative Bedside Urine Ketone - Negative Urine Specific [place] 1.015 Bedside Urine Occult Blood - Negative Bedside Urine pH 7.5 Bedside Urine Protein +/- 15 Bedside Urine Urobilinogen +/- 1mg Bedside Urine Nitrite - Negative Bedside Urine Leukocytes - Negative Esterase Discharge Plan Departure Patient Disposition: Home Clinical Impression: Upper respiratory infection Qualifiers: URI type: unspecified viral URI Qualified Code(s): J06.9 - Acute upper respiratory infection, unspecified Acute otalgia Qualifiers: Laterality: right Qualified Code(s): H92.01 - Otalgia, right ear Discharge Date/Time: 06/20/18 21:50 Interventions: ED Discharge Assessment Last Done: 06/20/18 21:55 Instructions: DI for Viral Upper Respiratory Infection -- Adult, DI for Ear Pain-Adult Activity Restrictions/Additional Instructions: Your influenza, strep and mono test came back negative. Urinalysis shows no signs of infection. Please follow up with primary care provider as scheduled on Sunday. In the meantime, please try sinus rinse, Flonase and allergy medicine and/or Sudafed. Please come back to emergency department for any acute concerns such as dehydration or trouble breathing. Prescriptions: No Action Vitamins (PRENAVITE) 1 tab PO QDAY Qty: 0 RF: 0 acyclovir 400 mg tablet 300 mg PO TID RF: 0 ranitidine HCl 150 mg tablet 1 tab PO BID RF: 0 ferrous sulfate 324 mg (65 mg iron) tablet,delayed release (DR/EC) 1 tab PO BID RF: 0 acetaminophen 325 mg Tablet 650 mg PO Q6HR PRN (Reason: Pain, Mild (1-3)) Qty: 100 RF: 0 ibuprofen 600 mg Tablet 600 mg PO Q6HR PRN (Reason: Pain, Mild (1-3)) Qty: 100 RF: 0 Referrals: Rosa Peralta MD [Primary Care Provider] - <Sae Valles DO - Last Filed: 06/20/18 23:55> Cosign ED Attending [place] Attestation: I was available for consultation during this patient's emergency department encounter
[2018-06-20 21:47] VITALS: BP 116/75; PULSE 67; RESP 18; TEMP 37.1; O2SAT 98
--- NOTE | 2018-06-20 21:49 | ED_ITS ---
HPI - URI/Sore Throat <Aniyah Bergeron, BUSINESS CONTROL MANAGER-BC - Last Filed: 06/20/18 21:49> General Chief Complaint: Upper Respiratory Symptoms Stated Complaint: HURTS TO TALK Time Seen by Provider: 06/20/18 20:50 Source: patient Mode of arrival: ambulatory Limitations: no limitations History of Present Illness HPI Narrative: The patient is a 33-year-old female with history of appendicitis depression who presents with a chief complaint of right ear pain, sore throat hurting to talk in hurting to swallow. This has been going on for 3 days. She also complains of swollen lymph nodes and some face pain on the right side. She denies any fevers nausea vomiting or diarrhea. She does complain of having urinated herself a few times recently. Chart review a straight history of urinary incontinence. She has not taken anything to feel better. Denies cough. Denies dysuria urgency or frequency. Related Data Home Medications Medication Instructions Recorded Confirmed Vitamins (PRENAVITE) 1 tab PO QDAY #0 12/28/15 11/13/17 acyclovir 300 mg PO TID 08/20/17 08/27/17 ferrous sulfate 1 tab PO BID 08/20/17 08/27/17 ranitidine HCl 1 tab PO BID 08/20/17 08/27/17 Previous Rx's Medication Instructions Recorded acetaminophen 650 mg PO Q6HR PRN #100 tab 08/29/17 ibuprofen 600 mg PO Q6HR PRN #100 tab 08/29/17 Allergies Allergy/AdvReac Type Severity Reaction Status Date / Time loratadine [LORATADINE] Allergy Severe Anaphylaxis Verified 11/13/17 01:56 nortriptyline [NORTRIPTYLINE] Allergy Severe Anaphylaxis Verified 11/13/17 01:56 soy [SOY] Allergy Severe Anaphylaxis Verified 11/13/17 01:56 codeine [CODEINE] Allergy Intermediate Vomiting Verified 11/13/17 01:56 egg Allergy Intermediate Nausea Verified 11/13/17 01:56 hydrocodone [From VICODIN] Allergy Intermediate Vomiting Verified 11/13/17 01:56 oxycodone [OXYCODONE] Allergy Intermediate Vomiting Verified 11/13/17 01:56 prochlorperazine Allergy Intermediate Vomiting Verified 11/13/17 01:56 [PROCHLORPERAZINE] Sulfa (Sulfonamide Allergy Intermediate Hives Verified 11/13/17 01:56 Antibiotics) [SULFA (SULFONAMIDE ANTIBIOTICS)] trimethoprim [TRIMETHOPRIM] Allergy Intermediate Vomiting Verified 11/13/17 01:56 mirtazapine [MIRTAZAPINE] Allergy Unknown Vomiting Unverified 11/13/17 01:56 Review of Systems <Aniyah Bergeron [facility] - Last Filed: 06/20/18 21:49> Review of Systems GENERAL: Denies chills, fatigue, malaise, fever, sweats. HEENT: See HPI RESPIRATORY: Denies dyspnea, cough, wheezing, hemoptysis, sputum. CARDIOVASCULAR: Denies chest pain, palpitations, orthopnea, edema, GASTROINTESTINAL: Denies nausea, vomiting, abdominal pain, diarrhea, constipation, melena. : see HPI MUSCULOSKELETAL: denies weakness, joint pain, or bony pain SKIN: Denies rash, skin lesions, or other NEUROLOGIC: Denies weakness, headache, numbness, change in speech, confusion, seizures, incoordination. PSYCHIATRIC: No concerning psychosocial issues. 12 point review of systems is negative except for those stated above PFSH <Aniyah Bergeron [facility] - Last Filed: 06/20/18 21:49> Social History Smoking Status: Never smoker Exam <Aniyah Bergeron [facility] - Last Filed: 06/20/18 21:49> Narrative Exam Narrative: GENERAL: This is a well-nourished, well-developed patient, no acute distress HEAD: Atraumatic. Normocephalic. No temporal or scalp tenderness. EYES: Pupils equal round and reactive. Extraocular motions intact. No scleral icterus. No injection or drainage. ENT: Nose without bleeding, purulent drainage or septal hematoma. Throat without erythema, tonsillar hypertrophy or exudate. Uvula midline. Airway patent. bilateral TMs pearly paulson. NECK: Trachea midline. No JVD or lymphadenopathy. Supple, nontender, no meningeal signs. CARDIOVASCULAR: Regular rate and rhythm RESPIRATORY: No cough. No increased respiratory effort. EXTREMITIES: No clubbing, cyanosis, or edema. No joint tenderness, effusion, or edema noted. BACK: Nontender without deformity or crepitance. No flank tenderness. NEURO: AOx3. SKIN: No rash or erythema. Initial Vital Signs Initial Vital Signs: Vital Signs Temperature 98.9 F 06/20/18 20:15 Pulse Rate 79 06/20/18 20:15 Respiratory Rate 18 06/20/18 20:15 Blood Pressure 120/80 06/20/18 20:15 Pulse Oximetry 98 06/20/18 20:15 <Sae Valles DO - Last Filed: 06/20/18 23:55> Initial Vital Signs Initial Vital Signs: Vital Signs Temperature 98.9 F 06/20/18 20:15 Pulse Rate 79 06/20/18 20:15 Respiratory Rate 18 06/20/18 20:15 Blood Pressure 120/80 06/20/18 20:15 Pulse Oximetry 98 06/20/18 20:15 Course <STACY Portillo - Last Filed: 06/20/18 21:49> Orders Ordered: ED Orders 06/20/18 20:54 Influenza A and B by PCR Rapid Stat 06/20/18 21:15 Monotest Stat Vital Signs - 8 hr 06/20/18 20:15 06/20/18 21:47 Temperature 98.9 F 98.8 F Pulse Rate 79 67 Respiratory Rate 18 18 Blood Pressure 120/80 Blood Pressure [Right Arm] 116/75 Pulse Oximetry 98 98 <Sae Valles DO - Last Filed: 06/20/18 23:55> Orders Ordered: ED Orders 06/20/18 20:54 Influenza A and B by PCR Rapid Stat 06/20/18 21:15 Monotest Stat Vital Signs - 8 hr 06/20/18 20:15 06/20/18 21:47 Temperature 98.9 F 98.8 F Pulse Rate 79 67 Respiratory Rate 18 18 Blood Pressure 120/80 Blood Pressure [Right Arm] 116/75 Pulse Oximetry 98 98 MDM - URI/Sore Throat <STACY Portillo - Last Filed: 06/20/18 21:49> Lab Data Lab Results 06/20/18 06/20/18 Range/Units 20:54 21:15 Monoscreen Negative (Negative) Influenza A & B (PCR) Negative (Negative) Point of Care Testing Test Results Negative Rapid Strep A Negative Urine Dip Bedside Urine Glucose Negative Bedside Urine Bilirubin - Negative Bedside Urine Ketone - Negative Urine Specific [place] 1.015 Bedside Urine Occult Blood - Negative Bedside Urine pH 7.5 Bedside Urine Protein +/- 15 Bedside Urine Urobilinogen +/- 1mg Bedside Urine Nitrite - Negative Bedside Urine Leukocytes - Negative Esterase MDM Narrative Medical decision making narrative: The patient has an overall benign exam. She has a negative flu, normal UA, negative strep and negative mono. I encouraged her to keep her appointment with her PCP as scheduled on Sunday. I encouraged use of [id number] Flonase, sinus rinse and allergy medicine and her Sudafed. I discussed at length symptomatic care, pushing fluids etc. I encouraged her to follow up with her PCP and return precautions the emergency department: Chest pain shortness of breath or acute concerns. Patient has no questions or concerns. <Sae Valles, - Last Filed: 06/20/18 23:55> Lab Data Lab Results 06/20/18 06/20/18 Range/Units 20:54 21:15 Monoscreen Negative (Negative) Influenza A & B (PCR) Negative (Negative) Point of Care Testing Test Results Negative Rapid Strep A Negative Urine Dip Bedside Urine Glucose Negative Bedside Urine Bilirubin - Negative Bedside Urine Ketone - Negative Urine Specific [place] 1.015 Bedside Urine Occult Blood - Negative Bedside Urine pH 7.5 Bedside Urine Protein +/- 15 Bedside Urine Urobilinogen +/- 1mg Bedside Urine Nitrite - Negative Bedside Urine Leukocytes - Negative Esterase Discharge Plan Departure Patient Disposition: Home Clinical Impression: Upper respiratory infection Qualifiers: URI type: unspecified viral URI Qualified Code(s): J06.9 - Acute upper respiratory infection, unspecified Acute otalgia Qualifiers: Laterality: right Qualified Code(s): H92.01 - Otalgia, right ear Discharge Date/Time: 06/20/18 21:50 Interventions: ED Discharge Assessment Last Done: 06/20/18 21:55 Instructions: DI for Viral Upper Respiratory Infection -- Adult, DI for Ear Pain-Adult Activity Restrictions/Additional Instructions: Your influenza, strep and mono test came back negative. Urinalysis shows no signs of infection. Please follow up with primary care provider as scheduled on Sunday. In the meantime, please try sinus rinse, Flonase and allergy medicine and/or Sudafed. Please come back to emergency department for any acute concerns such as dehydration or trouble breathing. Prescriptions: No Action Vitamins (PRENAVITE) 1 tab PO QDAY Qty: 0 RF: 0 acyclovir 400 mg tablet 300 mg PO TID RF: 0 ranitidine HCl 150 mg tablet 1 tab PO BID RF: 0 ferrous sulfate 324 mg (65 mg iron) tablet,delayed release (DR/EC) 1 tab PO BID RF: 0 acetaminophen 325 mg Tablet 650 mg PO Q6HR PRN (Reason: Pain, Mild (1-3)) Qty: 100 RF: 0 ibuprofen 600 mg Tablet 600 mg PO Q6HR PRN (Reason: Pain, Mild (1-3)) Qty: 100 RF: 0 Referrals: Rosa Peralta MD [Primary Care Provider] - <Sae Valles DO - Last Filed: 06/20/18 23:55> Cosign ED Attending [place] Attestation: I was available for consultation during this patient's emergency department encounter
== END 2018-06-20 21:50 | disposition home or self-care (01) ==
PROVIDERS: Emergency Provider Nurse Practitioner Family; Family Provider Family Medicine; PCP Family Medicine
DX: J06.9 Acute upper respiratory infection, unspecified (principal); H92.01 Otalgia, right ear; N39.498 Other specified urinary incontinence
CPT/HCPCS: 81003; 81025; 86318; 87400; 87880; 99282

== ENCOUNTER 2018-06-22 11:50 | Emergency (ER) | payer OTHER, MEDICAID, SELFPAY ==
[2018-06-22 12:06] VITALS: BP 114/62; PULSE 112; RESP 18; TEMP 37.1; O2SAT 98; BMI 19.3
--- NOTE | 2018-06-22 12:26 | ED_ITS ---
HPI - URI/Sore Throat General Chief Complaint: Upper Respiratory Symptoms Stated Complaint: SWOLLEN THROAT/CHEST PAIN/EAR PAIN X5 DAYS Time Seen by Provider: 06/22/18 12:04 Source: patient Mode of arrival: ambulatory Limitations: no limitations History of Present Illness HPI Narrative: Patient is a 33-year-old female who presents for a sore throat right ear pain. She says she has been checked for strep mono and UTI during her last visit all which were negative. She is seen by her PCP yesterday suggested possible viral syndrome and started her on prednisone. She took 1 dose last night and 1 dose this morning felt like her throat was becoming more painful. She has a chronic pain patient and takes medical marijuana daily to help with her pain. However he says this pain is out of control. She also feels like her chest hurts sometimes she has no productive cough no fever. She has no abdominal pain vomiting nausea or diarrhea. MD Complaint: fever, cough, sore throat and sinus pain Related Data Home Medications Medication Instructions Recorded Confirmed Vitamins (PRENAVITE) 1 tab PO QDAY #0 12/28/15 11/13/17 acyclovir 300 mg PO TID 08/20/17 08/27/17 ferrous sulfate 1 tab PO BID 08/20/17 08/27/17 ranitidine HCl 1 tab PO BID 08/20/17 08/27/17 Previous Rx's Medication Instructions Recorded acetaminophen 650 mg PO Q6HR PRN #100 tab 08/29/17 ibuprofen 600 mg PO Q6HR PRN #100 tab 08/29/17 Allergies Allergy/AdvReac Type Severity Reaction Status Date / Time loratadine [LORATADINE] Allergy Severe Anaphylaxis Verified 11/13/17 01:56 nortriptyline [NORTRIPTYLINE] Allergy Severe Anaphylaxis Verified 06/22/18 12:10 soy [SOY] Allergy Severe Anaphylaxis Verified 06/22/18 12:10 codeine [CODEINE] Allergy Intermediate Vomiting Verified 06/22/18 12:10 egg Allergy Intermediate Nausea Verified 06/22/18 12:10 hydrocodone [From VICODIN] Allergy Intermediate Vomiting Verified 06/22/18 12:10 oxycodone [OXYCODONE] Allergy Intermediate Vomiting Verified 06/22/18 12:10 prochlorperazine Allergy Intermediate Vomiting Verified 06/22/18 12:10 [PROCHLORPERAZINE] Sulfa (Sulfonamide Allergy Intermediate Hives Verified 06/22/18 12:10 Antibiotics) [SULFA (SULFONAMIDE ANTIBIOTICS)] trimethoprim [TRIMETHOPRIM] Allergy Intermediate Vomiting Verified 06/22/18 12:10 mirtazapine [MIRTAZAPINE] Allergy Unknown Vomiting Verified 06/22/18 12:10 Review of Systems Review of Systems ROS Unobtainable: All systems reviewed & are unremarkable except as noted in HPI and below Constitutional Denies body ache(s), Denies chills and Denies fever(s) Eyes Denies change in vision, Denies eye discharge, Denies irritation and Denies loss of vision ENT Ears, Nose, Mouth, and Throat: Reports as per HPI, Reports otalgia and Reports sore throat Cardiovascular Denies dyspnea and Denies dyspnea on exertion Respiratory Denies cough, Denies dyspnea, Denies dyspnea on exertion and Denies wheezing Gastrointestinal Gastrointestinal: Denies abdominal pain, Denies change in bowel habits, Denies diarrhea, Denies nausea and Denies vomiting Musculoskeletal Denies back pain, Denies muscle weakness, Denies numbness and Denies tingling Integumentary/Breasts Denies pruritus, Denies erythema, Denies rash and Denies wounds Neurologic Denies loss of vision, Denies numbness and Denies tingling Allergic/Immunologic Denies wheezing [facility] Medical History Splenic mass (Acute) Surgical History No pertinent past surgical history (Acute) Social History Smoking Status: Never smoker Social History Smoking Status: Never smoker Exam Initial Vital Signs Initial Vital Signs: Vital Signs Temperature 98.7 F 06/22/18 12:06 Pulse Rate 112 H 06/22/18 12:06 Respiratory Rate 18 06/22/18 12:06 Blood Pressure 114/62 06/22/18 12:06 Pulse Oximetry 98 06/22/18 12:06 GENERAL: Well-appearing, well-nourished and in no acute distress. HEENT: Head atraumatic,EOMI, pupils reactive, neck is supple EARS: Tympanic membranes visualized, no erythema or bulging, no hemotympanum PHARYNX: Mild erythema on the right no significant swelling no uvula deviation airway pain imaging on secretions no cervical lymphadenopathy CARDIOVASCULAR: Regular rate and rhythm without murmurs, rubs or gallops. RESPIRATORY: Breath sounds equal bilaterally, no wheezes rales or rhonchi. ABDOMEN: Soft, nontender. Normoactive bowel sounds all 4 quadrants. No guarding or rebound. EXTREMITIES: Normal range of motion, no clubbing or edema. Neurovascularly intact NEUROLOGICAL: Alert and oriented x4.Normal gait and speech. Cranial nerves II through XII grossly intact. SKIN: Warm, dry, no laceration, no petechiae, no rashes or lesions. Course Orders Ordered: ED Orders 06/22/18 13:05 Basic Metabolic Panel Stat Complete Blood Count AUTO DIFF Stat Discontinued Medications Sodium Chloride (Normal Saline 0.9%) 1,000 mls @ 1,000 mls/hr IV BOLUS ONE Stop: 06/22/18 13:37 Last Infusion: 06/22/18 13:55 Dose: 0 mls/hr Admin: 06/22/18 13:05 Dose: 1,000 mls/hr Ketorolac Tromethamine (Toradol) 30 mg IV NOW ONE Stop: 06/22/18 12:42 Last Admin: 06/22/18 13:05 Dose: 30 mg Vital Signs - 8 hr 06/22/18 12:06 06/22/18 13:09 06/22/18 14:43 Temperature 98.7 F Pulse Rate 112 H 69 77 Respiratory Rate 18 16 16 Blood Pressure 114/62 98/66 Blood Pressure [Right Arm] 106/69 Pulse Oximetry 98 97 99 MDM - URI/Sore Throat Lab Data Attestation: I reviewed the patient's lab results. Result diagrams: 06/22/18 13:05 06/22/18 13:05 Lab Results 06/22/18 06/22/18 Range/Units 13:05 13:05 WBC 11.3 H (4.5-11.0) X10^3/uL RBC 3.92 L (4.0-5.2) X10^6/uL Hgb 12.0 (12.0-16.0) g/dL Hct 35.3 L (36-46) % MCV 90.3 (80-100) fL MCH 30.7 (26-34) PG MCHC 34.0 (30-36) % RDW 14.5 (11.6-14.8) % Plt Count 154 (150-400) X10^3/uL Neut % (Auto) 86.7 H (50-75) % Lymph % (Auto) 7.8 L (25-40) % [place] % (Auto) 5.1 (3-14) % Eos % (Auto) 0.2 L (2-4) % Baso % (Auto) 0.2 (0-2) % Neut # (Auto) 9800 H (2080-4493) /uL Lymph # (Auto) 900 L (6312-5635) /uL [place] # (Auto) 600 (0-900) /uL Eos # (Auto) 0 (0-450) /uL Baso # (Auto) 0 (0-100) /uL Sodium 139 (137-145) mmol/L Potassium 3.6 (3.4-5.1) mmol/L Chloride 102 (98-107) mmol/L Carbon Dioxide 27 (22-32) mmol/L BUN 20 H (7-17) mg/dL Creatinine 0.70 (0.52-1.04) mg/dL Estimated GFR > 60.0 (>60) mL/min BUN/Creatinine Ratio 28.6 H (6-22) Glucose 96 (70-100) mg/dL Calcium 9.3 (8.4-10.2) mg/dL Point of Care Testing Rapid Strep A Negative MDM Narrative Medical decision making narrative: Patient's outcome looks like a respiratory viral syndrome. She has mild leukocytosis but has taken 2 doses of prednisone. This time I do not feel she needs antibiotic she has had 2-strep test negative mono and a negative influenza. She has no cough or shortness of breath at this time I do not think she warrants a chest x-ray. She states that she has had abscesses before but they seem to be dental related and she has had significant pain in her teeth do not believe this to be her problem. No sign of peritonsillar abscess or retropharyngeal abscess. Discussed warning signs with both patient and and when to return to the ED. Discharge Plan Departure Patient Disposition: Home Clinical Impression: Acute viral syndrome Discharge Date/Time: 06/22/18 14:22 Interventions: ED Discharge Assessment Last Done: 06/22/18 14:43 Instructions: DI for Viral Syndrome Activity Restrictions/Additional Instructions: *You have been diagnosed with viral syndrome *What to do: At this time there is no indication for you to have any antibiotics. This is a viral syndrome which will resolve on its own in 5-10 days. Recommend fever control and increasing fluids. *Continue to take medications as directed Tylenol 650 mg every 4-6 hours if needed for pain Ibuprofen 600 mg every 8 hours if needed for pain Finished prednisone as previously prescribed *Follow up with your primary care provider in 2-3 days *Return to ER if you should have inability to swallow needing to sit up her secretions, difficulty breathing or any new, worsening or concerning symptoms Prescriptions: No Action Vitamins (PRENAVITE) 1 tab PO QDAY Qty: 0 RF: 0 acyclovir 400 mg tablet 300 mg PO TID RF: 0 ranitidine HCl 150 mg tablet 1 tab PO BID RF: 0 ferrous sulfate 324 mg (65 mg iron) tablet,delayed release (DR/EC) 1 tab PO BID RF: 0 acetaminophen 325 mg Tablet 650 mg PO Q6HR PRN (Reason: Pain, Mild (1-3)) Qty: 100 RF: 0 ibuprofen 600 mg Tablet 600 mg PO Q6HR PRN (Reason: Pain, Mild (1-3)) Qty: 100 RF: 0 Referrals: Rosa Peralta MD [Primary Care Provider] -
[2018-06-22] MEDS: KETOROLAC 60 MG/2 ML VIAL 30 MG IV (13:05)
[2018-06-22] MEDS: SODIUM CHLORIDE 0.9% 1,000 ML 1000 ML IV (13:05)
[2018-06-22 13:09] VITALS: BP 106/69; PULSE 69; RESP 16; O2SAT 97
[2018-06-22 13:10] LABS: Add Manual Diff / Slide Review NO; Basophils Absolute Auto 0 /uL (0-100); Basophils Percent Auto 0.2 % (0-2); Eosinophils Absolute Auto 0 /uL (0-450); Eosinophils Percent Auto 0.2 % (2-4); Hematocrit 35.3 % (36-46); Lymphocytes Absolute Auto 900 /uL (1100-4500); Lymphocytes Percent Auto 7.8 % (25-40); Mean Corpuscular Hemoglobin 30.7 PG (26-34); Mean Corpuscular Volume 90.3 fL (80-100); Monocytes Absolute Auto 600 /uL (0-900); Monocytes Percent Auto 5.1 % (3-14); Neutrophils Absolute Auto 9800 /uL (1500-7000); Neutrophils Percent Auto 86.7 % (50-75); Platelet Count 154 X10^3/uL (150-400); Red Blood Cell Count 3.92 X10^6/uL (4.0-5.2); Red Cell Distribution Width 14.5 % (11.6-14.8); White Blood Cell Count 11.3 X10^3/uL (4.5-11.0)
[2018-06-22 13:19] LABS: BUN Creatinine Ratio 28.6 (6-22); Blood Urea Nitrogen 20 mg/dL (7-17); Calcium 9.3 mg/dL (8.4-10.2); Carbon Dioxide 27 mmol/L (22-32); Chloride 102 mmol/L (98-107); Estimated Glomerular Filt Rate > 60.0 mL/min (>60); Glucose 96 mg/dL (70-100); HEMOLYSIS < 15 (0-50); Potassium 3.6 mmol/L (3.4-5.1); Sodium 139 mmol/L (137-145)
[2018-06-22 14:43] VITALS: BP 98/66; PULSE 77; RESP 16; O2SAT 99
== END 2018-06-22 14:22 | disposition home or self-care (01) ==
PROVIDERS: Emergency Provider Emergency Medicine; Family Provider Family Medicine; PCP Family Medicine
DX: B34.9 Viral infection, unspecified (principal)
CPT/HCPCS: 36591; 80048; 85025; 87880; 96361; 96374; 99283; 99284; J1885

== ENCOUNTER 2018-08-04 10:49 | Emergency (ER) | payer OTHER, MEDICAID, SELFPAY ==
[2018-08-04 11:01] VITALS: BP 121/79; PULSE 79; RESP 14; TEMP 36.4; O2SAT 100
--- NOTE | 2018-08-04 11:23 | ED_ITS ---
HPI - Dental/Oral <Yesica Winston PA-C - Last Filed: 08/04/18 15:05> General Chief complaint: Dental/Oral Stated complaint: Jaw/Tooth pain Time Seen by Provider: 08/04/18 11:02 Source: patient Mode of arrival: ambulatory Limitations: no limitations History of Present Illness HPI Narrative: This 33-year-old female complains of worsening right lower tooth pain for the last 5 days, and is concerned for infection. She states maybe she has had low-grade fever to 99, not noting chills and sweats. She denies any other new symptoms such as cough, congestion, earache, or sore throat. She s tates that she has had multiple root canals and crowns and has a cracked tooth there. She does not have a local dentist. She states she has menses now and denies possibility of . Related Data Home Medications Medication Instructions Recorded Confirmed Vitamins (PRENAVITE) 1 tab PO QDAY #0 12/28/15 11/13/17 acyclovir 300 mg PO TID 08/20/17 08/27/17 ferrous sulfate 1 tab PO BID 08/20/17 08/27/17 ranitidine HCl 1 tab PO BID 08/20/17 08/27/17 Previous Rx's Medication Instructions Recorded acetaminophen 650 mg PO Q6HR PRN #100 tab 08/29/17 ibuprofen 600 mg PO Q6HR PRN #100 tab 08/29/17 amoxicillin 500 mg PO Q8H #21 cap 08/04/18 Allergies Allergy/AdvReac Type Severity Reaction Status Date / Time loratadine [LORATADINE] Allergy Severe Anaphylaxis Verified 11/13/17 01:56 nortriptyline [NORTRIPTYLINE] Allergy Severe Anaphylaxis Verified 06/22/18 12:10 soy [SOY] Allergy Severe Anaphylaxis Verified 06/22/18 12:10 codeine [CODEINE] Allergy Intermediate Vomiting Verified 06/22/18 12:10 egg Allergy Intermediate Nausea Verified 06/22/18 12:10 hydrocodone [From VICODIN] Allergy Intermediate Vomiting Verified 06/22/18 12:10 oxycodone [OXYCODONE] Allergy Intermediate Vomiting Verified 06/22/18 12:10 prochlorperazine Allergy Intermediate Vomiting Verified 06/22/18 12:10 [PROCHLORPERAZINE] Sulfa (Sulfonamide Allergy Intermediate Hives Verified 06/22/18 12:10 Antibiotics) [SULFA (SULFONAMIDE ANTIBIOTICS)] trimethoprim [TRIMETHOPRIM] Allergy Intermediate Vomiting Verified 06/22/18 12:10 mirtazapine [MIRTAZAPINE] Allergy Unknown Vomiting Verified 06/22/18 12:10 Review of Systems <Yesica Winston PA-C - Last Filed: 08/04/18 15:05> Review of Systems ROS Unobtainable: All systems reviewed & are unremarkable except as noted in HPI and below PFSH <Yesica Winston PA-C - Last Filed: 08/04/18 15:05> Medical History (Updated 08/04/18 @ 11:20 by Yesica Winston PA-C) Bipolar 1 disorder, depressed (Chronic) PTSD (post-traumatic stress disorder) (Chronic) Splenic mass (Resolved) Surgical History (Updated 08/04/18 @ 11:20 by Yesica Winston PA-C) History of mandibular surgery (Resolved) Personal history of thoracic outlet syndrome (Resolved) Status post appendectomy (Resolved) No pertinent past surgical history (Inactive) Social History Smoking Status: Never smoker Social History Smoking Status: Never smoker Comment: Smokes THC Exam <Yesica Winston PA-C - Last Filed: 08/04/18 15:05> Narrative Exam Narrative: GENERAL APPEARANCE: Patient sitting comfortably, in no distress. HEAD: No sinus TTP. EYES: PERRL, EOMI. EARS: Normal auditory canals, TMS intact with normal light reflexes. ORAL CAVITY: Multiple dental repairs. Tender on and between the right 1st molar and 2nd premolar where there have been dental repairs. Gingival tissue is erythematous and tender on the labial side, no fluctuance or circumscribed edema. Poor dentition with multiple repairs noted. THROAT: Mild erythema without exudate NECK/THYROID: Neck supple, full range of motion, no cervical lymphadenopathy. LUNGS: Clear to auscultation bilaterally, no cough on exam. HEART: RRR without murmur, nl S1, S2, no S3 or S4. Initial Vital Signs Initial Vital Signs: Vital Signs Temperature 97.5 F L 08/04/18 11:01 Pulse Rate 79 08/04/18 11:01 Respiratory Rate 14 08/04/18 11:01 Blood Pressure 121/79 08/04/18 11:01 Pulse Oximetry 100 08/04/18 11:01 <Mike Ly DO - Last Filed: 08/04/18 19:07> Initial Vital Signs Initial Vital Signs: Vital Signs Temperature 97.5 F L 08/04/18 11:01 Pulse Rate 79 08/04/18 11:01 Respiratory Rate 14 08/04/18 11:01 Blood Pressure 121/79 08/04/18 11:01 Pulse Oximetry 100 08/04/18 11:01 Course <Yesica Winston PA-C - Last Filed: 08/04/18 15:05> Vital Signs - 8 hr 08/04/18 11:01 Temperature 97.5 F L Pulse Rate 79 Respiratory Rate 14 Blood Pressure 121/79 Pulse Oximetry 100 <Mike Ly DO - Last Filed: 08/04/18 19:07> Vital Signs - 8 hr 08/04/18 11:01 Temperature 97.5 F L Pulse Rate 79 Respiratory Rate 14 Blood Pressure 121/79 Pulse Oximetry 100 Discharge Plan Departure Patient Disposition: Home Clinical Impression: Dental infection Discharge Date/Time: 08/04/18 11:32 Interventions: ED Discharge Assessment Last Done: 08/04/18 11:32 Instructions: DI for Dental Pain Activity Restrictions/Additional Instructions: I do not see an abscess around your tooth however the tissue is inflamed and may be getting infected. You also have a little bit of exposure of the pulp of the tooth which can cause pain. Please start the amoxicillin as soon as you pick it up for the infection. Take ibuprofen 6-800 mg every 8 hours to help with pain and inflammation and you can add Tylenol as needed. Also brain picker some Orajel or similar from the pharmacy to apply to the painful site. Please call or go to [facility] dental 1st thing in the morning so that you can get set up to get further dental care. Return as we talked about if acutely worsening symptoms in the interim Prescriptions: New amoxicillin 500 mg capsule 500 mg PO Q8H Qty: 21 RF: 0 No Action Vitamins (PRENAVITE) 1 tab PO QDAY Qty: 0 RF: 0 acyclovir 400 mg tablet 300 mg PO TID RF: 0 ranitidine HCl 150 mg tablet 1 tab PO BID RF: 0 ferrous sulfate 324 mg (65 mg iron) tablet,delayed release (DR/EC) 1 tab PO BID RF: 0 acetaminophen 325 mg Tablet 650 mg PO Q6HR PRN (Reason: Pain, Mild (1-3)) Qty: 100 RF: 0 ibuprofen 600 mg Tablet 600 mg PO Q6HR PRN (Reason: Pain, Mild (1-3)) Qty: 100 RF: 0 Referrals: [facility], [place] [Other] Rosa Peralta MD [Primary Care Provider] - <Mike Ly DO - Last Filed: 08/04/18 19:07> Cosign ED Attending Cosignature Attestation: I was immediately available in the department for consultation. Documentation has been reviewed. I agree with assessment and plan.
== END 2018-08-04 11:32 | disposition home or self-care (01) ==
PROVIDERS: Emergency Provider Internal Medicine; PCP Family Medicine
DX: K04.7 Periapical abscess without sinus (principal)
CPT/HCPCS: 99282; 99283

== ENCOUNTER 2018-10-03 10:58 | Emergency (ER) | payer OTHER, MEDICAID, SELFPAY ==
[2018-10-03 11:09] VITALS: BP 109/69; PULSE 74; RESP 17; TEMP 36.7; O2SAT 99; BMI 21.1
--- NOTE | 2018-10-03 11:21 | DI.RAD.S_ITS ---
PROCEDURE: XR KNEE LT 3V INDICATIONS: fall, knee pain TECHNIQUE: 3 views of the knee were acquired. COMPARISON: None. FINDINGS: Bones: No fractures or dislocations. No suspicious bony lesions. Soft tissues: No joint effusion. No suspicious soft tissue calcifications. IMPRESSION: No gross acute left knee fracture or dislocation. Dictated by: Govind Miguel M.D. on 10/03/2018 at 10:55 Approved by: Govind Miguel M.D. on 10/03/2018 at 10:58
--- NOTE | 2018-10-03 11:21 | DI.RAD.S_ITS ---
PROCEDURE: XR FOOT LT MIN 3V INDICATIONS: fall, toe pain TECHNIQUE: Pre-views of the foot were acquired. COMPARISON: None. FINDINGS: Bones: No fractures or dislocations. No suspicious bony lesions. Soft tissues: No tibiotalar joint effusion. Achilles tendon appears normal. IMPRESSION: No gross acute left foot fracture or dislocation. Dictated by: Govind Miguel M.D. on 10/03/2018 at 11:01 Approved by: Govind Miguel M.D. on 10/03/2018 at 11:01
--- NOTE | 2018-10-03 11:30 | ED.LOWEXIN ---
HPI - Extremity Injury (Lower) General Chief Complaint: Extremity Injury, Lower Stated Complaint: Left knee and big toe injury from fall Time Seen by Provider: 10/03/18 11:30 Source: patient Mode of arrival: ambulatory Limitations: no limitations History of Present Illness HPI Narrative: This is a 33-year-old female who comes to the emergency department with complaint of knee and foot pain on the left. Patient states her big toe and her left knee she had an injury 2 days ago. She states she was in her kids sensory swing. She states that she sort of fell forward and her feet child out and hit the couch. She stubbed her great toe into the couch. She also landed on her left knee she states these a little bit tender on the lateral side but she has good movement has been walking on it. She has a little bit of bruising abrasion. She has also been complaining of in her great toe and has some pain with movement and ambulation. She has been ambulating but is uncomfortable. Patient denies any current medical issues but has had surgery for thoracic outlet syndrome three times. States immunizations are up-to-date. She has no other concerns at this time. Related Data Home Medications Medication Instructions Recorded Confirmed acyclovir 300 mg PO TID 08/20/17 08/27/17 ferrous sulfate 1 tab PO BID 08/20/17 08/27/17 ranitidine HCl 1 tab PO BID 08/20/17 08/27/17 citalopram 40 mg PO DAILY 10/03/18 10/03/18 ondansetron 4 mg PO TID PRN 10/03/18 10/03/18 prazosin 5 mg PO DAILY 10/03/18 10/03/18 quetiapine 200 mg PO DAILY 10/03/18 10/03/18 Previous Rx's Medication Instructions Recorded acetaminophen 650 mg PO Q6HR PRN #100 tab 08/29/17 ibuprofen 600 mg PO Q6HR PRN #100 tab 08/29/17 Allergies Allergy/AdvReac Type Severity Reaction Status Date / Time loratadine [LORATADINE] Allergy Severe Anaphylaxis Verified 10/03/18 11:55 nortriptyline [NORTRIPTYLINE] Allergy Severe Anaphylaxis Verified 10/03/18 11:55 soy [SOY] Allergy Severe Anaphylaxis Verified 10/03/18 11:55 codeine [CODEINE] Allergy Intermediate Vomiting Verified 10/03/18 11:55 egg Allergy Intermediate Nausea Verified 10/03/18 11:55 hydrocodone [From VICODIN] Allergy Intermediate Vomiting Verified 10/03/18 11:55 oxycodone [OXYCODONE] Allergy Intermediate Vomiting Verified 10/03/18 11:55 prochlorperazine Allergy Intermediate Vomiting Verified 10/03/18 11:55 [PROCHLORPERAZINE] Sulfa (Sulfonamide Allergy Intermediate Hives Verified 10/03/18 11:55 Antibiotics) [SULFA (SULFONAMIDE ANTIBIOTICS)] trimethoprim [TRIMETHOPRIM] Allergy Intermediate Vomiting Verified 10/03/18 11:55 mirtazapine [MIRTAZAPINE] Allergy Unknown Vomiting Verified 10/03/18 11:55 Review of Systems Review of Systems ROS Unobtainable: All systems reviewed & are unremarkable except as noted in HPI and below Musculoskeletal Reports as per HPI, Reports abnormal gait, Denies deformity, Reports arthralgias (knee the pain, great toe), Reports joint swelling, Reports limited range of motion (Great toe), Denies muscle weakness, Denies numbness and Denies tingling Integumentary/Breasts Denies non-healing lesions (Scrape any), Reports unusual bruising (Bruising over knee) and Denies wounds Neurologic Reports abnormal gait, Denies numbness and Denies tingling [facility] Medical History Bipolar 1 disorder, depressed (Chronic) PTSD (post-traumatic stress disorder) (Chronic) Splenic mass (Resolved) Surgical History History of mandibular surgery (Resolved) Personal history of thoracic outlet syndrome (Resolved) Status post appendectomy (Resolved) No pertinent past surgical history (Inactive) Social History Smoking Status: Never smoker Social History Smoking Status: Never smoker Exam Narrative Exam Narrative: GENERAL: Alert and oriented x three, well-nourished, well-appearing female in mild distress. HEENT: Head normocephalic, atraumatic, EOMI, pupils reactive, face symmetric, moist mucous membranes NECK: Supple, full range of motion CARDIOVASCULAR: Regular rate and rhythm without murmurs, rubs or gallops. RESPIRATORY: Breath sounds equal bilaterally, no wheezes rales or rhonchi. ABDOMEN: Soft, nontender. Normoactive bowel sounds all 4 quadrants. No guarding or rebound, rigidity, no mass : No CVA tenderness EXTREMITIES: Normal range of motion, patient's right knee is not swollen, no discrete bony tenderness she does have full range of motion, she does have little bit of mild ecchymosis that appears to be older as well as an healing abrasion, there is no signs of infection. Patient's foot she has a little bit of swelling of the great toe. She can flex and extended although not quite is easily. She does have some tenderness over the proximal toe. But no bony tenderness in the foot or ankle. She has 2+ pulses in the foot, normal sensation throughout with cap refill less than 2 seconds in all 5 toes, No clubbing. Neurovascularly intact NEUROLOGICAL: Cranial nerves II through XII grossly intact. Moving all extremities SKIN: Warm, dry, no petechiae, no rashes or lesions. Initial Vital Signs Initial Vital Signs: Vital Signs Temperature 98.0 F 10/03/18 11:09 Pulse Rate 74 10/03/18 11:09 Respiratory Rate 17 10/03/18 11:09 Blood Pressure 109/69 10/03/18 11:09 Pulse Oximetry 99 10/03/18 11:09 Course Orders Ordered: ED Orders 10/03/18 11:21 XR foot LT min 3V Stat XR knee LT 3V Stat Vital Signs - 8 hr 10/03/18 11:09 10/03/18 12:26 Temperature 98.0 F Pulse Rate 74 67 Respiratory Rate 17 Blood Pressure 109/69 109/72 Pulse Oximetry 99 99 MDM - Extremity Injury (Lower) Imaging Data Foot x-ray: Radiologist's impression: [address] [address] XRay Report Signed Patient: Dennis Martines [facility]#: [id number] : 1985Acct:[id number] Age/Sex: FDate of Service: 10/03/18 Loc: ED Accession Number: [id number] Procedure: XR foot LT min 3V Ordering Provider: Aniyah Alvarado D.O. PROCEDURE: XR FOOT LT MIN 3V INDICATIONS: fall, toe pain TECHNIQUE: Pre-views of the foot were acquired. COMPARISON: None. FINDINGS: Bones: No fractures or dislocations. No suspicious bony lesions. Soft tissues: No tibiotalar joint effusion. Achilles tendon appears normal. IMPRESSION: No gross acute left foot fracture or dislocation. Dictated by: Govind Miguel M.D. on 10/03/2018 at 11:01 Approved by: Govind Miguel M.D. on 10/03/2018 at 11:01 Knee x-ray: Radiologist's impression: [address] [address] XRay Report Signed Patient: Dennis Martines [facility]#: [id number] : 1985Acct:[id number] Age/Sex: te of Service: 10/03/18 Loc: ED Accession Number: [id number] Procedure: XR knee LT 3V Ordering Provider: Ainyah Alvarado D.O. PROCEDURE: XR KNEE LT 3V INDICATIONS: fall, knee pain TECHNIQUE: 3 views of the knee were acquired. COMPARISON: None. FINDINGS: Bones: No fractures or dislocations. No suspicious bony lesions. Soft tissues: No joint effusion. No suspicious soft tissue calcifications. IMPRESSION: No gross acute left knee fracture or dislocation. Dictated by: Govind Miguel M.D. on 10/03/2018 at 10:55 Approved by: Govind Miguel M.D. on 10/03/2018 at 10:58 MDM Narrative Medical decision making narrative: Patient does not have any clear fractures or bony injuries. Her exam is fairly benign. She does have a little bit discomfort I suspect she jammed her toe or sprained it. Um as well as the abrasion on her knee. Discussed she can weight bear as tolerated and continue her normal activities as tolerated. Follow up in 7-10 days for repeat imaging is needed. Patient can take ibuprofen Tylenol and discussed return precautions. Patient is comfortable with the plan Discharge Plan Departure Patient Disposition: Home Clinical Impression: Abrasion of knee, left Qualifiers: Encounter type: initial encounter Qualified Code(s): S80.212A - Abrasion, left knee, initial encounter Sprain of great toe, left Qualifiers: Encounter type: initial encounter Qualified Code(s): S93.502A - Unspecified sprain of left great toe, initial encounter Discharge Date/Time: 10/03/18 12:27 Interventions: ED Discharge Assessment Last Done: 10/03/18 12:26 Instructions: DI for Toe Sprain Activity Restrictions/Additional Instructions: Follow-up with primary care the next 7-10 days if your symptoms have not completely resolved for repeat imaging as sometimes a very small fractures that are not visualized on initial x-rays until the bone heals. You may continue Tylenol up to a 1000 mg every 8 hours as needed for pain and or Tylenol up to 600 mg every 6 hours as needed for pain. You may use ice as needed to the affected area. Return to the emergency department for new weakness, numbness, loss of sensation, rapidly worsening pain or other new or concerning symptoms. Prescriptions: No Action acyclovir 400 mg tablet 300 mg PO TID RF: 0 ranitidine HCl 150 mg tablet 1 tab PO BID RF: 0 ferrous sulfate 324 mg (65 mg iron) tablet,delayed release (DR/EC) 1 tab PO BID RF: 0 citalopram 40 mg tablet 40 mg PO DAILY RF: 0 quetiapine 200 mg tablet 200 mg PO DAILY RF: 0 prazosin 5 mg capsule 5 mg PO DAILY RF: 0 ondansetron 4 mg tablet,disintegrating 4 mg PO TID PRN (Reason: Nausea) RF: 0 acetaminophen 325 mg Tablet 650 mg PO Q6HR PRN (Reason: Pain, Mild (1-3)) Qty: 100 RF: 0 ibuprofen 600 mg Tablet 600 mg PO Q6HR PRN (Reason: Pain, Mild (1-3)) Qty: 100 RF: 0 Referrals: Rosa Peralta MD [Primary Care Provider] -
--- NOTE | 2018-10-03 11:54 | ED_ITS ---
HPI - Extremity Injury (Lower) General Chief Complaint: Extremity Injury, Lower Stated Complaint: Left knee and big toe injury from fall Time Seen by Provider: 10/03/18 11:30 Source: patient Mode of arrival: ambulatory Limitations: no limitations History of Present Illness HPI Narrative: This is a 33-year-old female who comes to the emergency department with complaint of knee and foot pain on the left. Patient states her big toe and her left knee she had an injury 2 days ago. She states she was in her kids sensory swing. She states that she sort of fell forward and her feet child out and hit the couch. She stubbed her great toe into the couch. She also landed on her left knee she states these a little bit tender on the lateral side but she has good movement has been walking on it. She has a little bit of bruising abrasion. She has also been complaining of in her great toe and has some pain with movement and ambulation. She has been ambulating but is uncomfortable. Patient denies any current medical issues but has had surgery for thoracic outlet syndrome three times. States immunizations are up-to-date. She has no other concerns at this time. Related Data Home Medications Medication Instructions Recorded Confirmed acyclovir 300 mg PO TID 08/20/17 08/27/17 ferrous sulfate 1 tab PO BID 08/20/17 08/27/17 ranitidine HCl 1 tab PO BID 08/20/17 08/27/17 citalopram 40 mg PO DAILY 10/03/18 10/03/18 ondansetron 4 mg PO TID PRN 10/03/18 10/03/18 prazosin 5 mg PO DAILY 10/03/18 10/03/18 quetiapine 200 mg PO DAILY 10/03/18 10/03/18 Previous Rx's Medication Instructions Recorded acetaminophen 650 mg PO Q6HR PRN #100 tab 08/29/17 ibuprofen 600 mg PO Q6HR PRN #100 tab 08/29/17 Allergies Allergy/AdvReac Type Severity Reaction Status Date / Time loratadine [LORATADINE] Allergy Severe Anaphylaxis Verified 10/03/18 11:55 nortriptyline [NORTRIPTYLINE] Allergy Severe Anaphylaxis Verified 10/03/18 11:55 soy [SOY] Allergy Severe Anaphylaxis Verified 10/03/18 11:55 codeine [CODEINE] Allergy Intermediate Vomiting Verified 10/03/18 11:55 egg Allergy Intermediate Nausea Verified 10/03/18 11:55 hydrocodone [From VICODIN] Allergy Intermediate Vomiting Verified 10/03/18 11:55 oxycodone [OXYCODONE] Allergy Intermediate Vomiting Verified 10/03/18 11:55 prochlorperazine Allergy Intermediate Vomiting Verified 10/03/18 11:55 [PROCHLORPERAZINE] Sulfa (Sulfonamide Allergy Intermediate Hives Verified 10/03/18 11:55 Antibiotics) [SULFA (SULFONAMIDE ANTIBIOTICS)] trimethoprim [TRIMETHOPRIM] Allergy Intermediate Vomiting Verified 10/03/18 11:55 mirtazapine [MIRTAZAPINE] Allergy Unknown Vomiting Verified 10/03/18 11:55 Review of Systems Review of Systems ROS Unobtainable: All systems reviewed & are unremarkable except as noted in HPI and below Musculoskeletal Reports as per HPI, Reports abnormal gait, Denies deformity, Reports arthralgias (knee the pain, great toe), Reports joint swelling, Reports limited range of motion (Great toe), Denies muscle weakness, Denies numbness and Denies tingling Integumentary/Breasts Denies non-healing lesions (Scrape any), Reports unusual bruising (Bruising over knee) and Denies wounds Neurologic Reports abnormal gait, Denies numbness and Denies tingling [facility] Medical History Bipolar 1 disorder, depressed (Chronic) PTSD (post-traumatic stress disorder) (Chronic) Splenic mass (Resolved) Surgical History History of mandibular surgery (Resolved) Personal history of thoracic outlet syndrome (Resolved) Status post appendectomy (Resolved) No pertinent past surgical history (Inactive) Social History Smoking Status: Never smoker Social History Smoking Status: Never smoker Exam Narrative Exam Narrative: GENERAL: Alert and oriented x three, well-nourished, well- appearing female in mild distress. HEENT: Head normocephalic, atraumatic, EOMI, pupils reactive, face symmetric, moist mucous membranes NECK: Supple, full range of motion CARDIOVASCULAR: Regular rate and rhythm without murmurs, rubs or gallops. RESPIRATORY: Breath sounds equal bilaterally, no wheezes rales or rhonchi. ABDOMEN: Soft, nontender. Normoactive bowel sounds all 4 quadrants. No guarding or rebound, rigidity, no mass : No CVA tenderness EXTREMITIES: Normal range of motion, patient's right knee is not swollen, no discrete bony tenderness she does have full range of motion, she does have little bit of mild ecchymosis that appears to be older as well as an healing abrasion, there is no signs of infection. Patient's foot she has a little bit of swelling of the great toe. She can flex and extended although not quite is easily. She does have some tenderness over the proximal toe. But no bony tenderness in the foot or ankle. She has 2+ pulses in the foot, normal sensation throughout with cap refill less than 2 seconds in all 5 toes, No clubbing. Neurovascularly intact NEUROLOGICAL: Cranial nerves II through XII grossly intact. Moving all extremities SKIN: Warm, dry, no petechiae, no rashes or lesions. Initial Vital Signs Initial Vital Signs: Vital Signs Temperature 98.0 F 10/03/18 11:09 Pulse Rate 74 10/03/18 11:09 Respiratory Rate 17 10/03/18 11:09 Blood Pressure 109/69 10/03/18 11:09 Pulse Oximetry 99 10/03/18 11:09 Course Orders Ordered: ED Orders 10/03/18 11:21 XR foot LT min 3V Stat XR knee LT 3V Stat Vital Signs - 8 hr 10/03/18 11:09 10/03/18 12:26 Temperature 98.0 F Pulse Rate 74 67 Respiratory Rate 17 Blood Pressure 109/69 109/72 Pulse Oximetry 99 99 MDM - Extremity Injury (Lower) Imaging Data Foot x-ray: Radiologist's impression: [address] [address] XRay Report Signed Patient: Dennis Martines [facility]#: [id number] : 1985Acct:[id number] Age/Sex: FDate of Service: 10/03/18 Loc: ED Accession Number: [id number] Procedure: XR foot LT min 3V Ordering Provider: Aniyah Alvarado D.O. PROCEDURE: XR FOOT LT MIN 3V INDICATIONS: fall, toe pain TECHNIQUE: Pre-views of the foot were acquired. COMPARISON: None. FINDINGS: Bones: No fractures or dislocations. No suspicious bony lesions. Soft tissues: No tibiotalar joint effusion. Achilles tendon appears normal. IMPRESSION: No gross acute left foot fracture or dislocation. Dictated by: Govind Miguel M.D. on 10/03/2018 at 11:01 Approved by: Govind Miguel M.D. on 10/03/2018 at 11:01 Knee x-ray: Radiologist's impression: [address] [address] XRay Report Signed Patient: Dennis Martines [facility]#: [id number] : 1985Acct:[id number] Age/Sex: te of Service: 10/03/18 Loc: ED Accession Number: [id number] Procedure: XR knee LT 3V Ordering Provider: Aniyah Alvarado D.O. PROCEDURE: XR KNEE LT 3V INDICATIONS: fall, knee pain TECHNIQUE: 3 views of the knee were acquired. COMPARISON: None. FINDINGS: Bones: No fractures or dislocations. No suspicious bony lesions. Soft tissues: No joint effusion. No suspicious soft tissue calcifications. IMPRESSION: No gross acute left knee fracture or dislocation. Dictated by: Govind Miguel M.D. on 10/03/2018 at 10:55 Approved by: Govind Miguel M.D. on 10/03/2018 at 10:58 MDM Narrative Medical decision making narrative: Patient does not have any clear fractures or bony injuries. Her exam is fairly benign. She does have a little bit discomfort I suspect she jammed her toe or sprained it. Um as well as the abrasion on her knee. Discussed she can weight bear as tolerated and continue her normal activities as tolerated. Follow up in 7-10 days for repeat imaging is needed. Patient can take ibuprofen Tylenol and discussed return precautions. Patient is comfortable with the plan Discharge Plan Departure Patient Disposition: Home Clinical Impression: Abrasion of knee, left Qualifiers: Encounter type: initial encounter Qualified Code(s): S80.212A - Abrasion, left knee, initial encounter Sprain of great toe, left Qualifiers: Encounter type: initial encounter Qualified Code(s): S93.502A - Unspecified spr ain of left great toe, initial encounter Discharge Date/Time: 10/03/18 12:27 Interventions: ED Discharge Assessment Last Done: 10/03/18 12:26 Instructions: DI for Toe Sprain Activity Restrictions/Additional Instructions: Follow-up with primary care the next 7-10 days if your symptoms have not completely resolved for repeat imaging as sometimes a very small fractures that are not visualized on initial x-rays until the bone heals. You may continue Tylenol up to a 1000 mg every 8 hours as needed for pain and or Tylenol up to 600 mg every 6 hours as needed for pain. You may use ice as needed to the affected area. Return to the emergency department for new weakness, numbness, loss of sensation, rapidly worsening pain or other new or concerning symptoms. Prescriptions: No Action acyclovir 400 mg tablet 300 mg PO TID RF: 0 ranitidine HCl 150 mg tablet 1 tab PO BID RF: 0 ferrous sulfate 324 mg (65 mg iron) tablet,delayed release (DR/EC) 1 tab PO BID RF: 0 citalopram 40 mg tablet 40 mg PO DAILY RF: 0 quetiapine 200 mg tablet 200 mg PO DAILY RF: 0 prazosin 5 mg capsule 5 mg PO DAILY RF: 0 ondansetron 4 mg tablet,disintegrating 4 mg PO TID PRN (Reason: Nausea) RF: 0 acetaminophen 325 mg Tablet 650 mg PO Q6HR PRN (Reason: Pain, Mild (1-3)) Qty: 100 RF: 0 ibuprofen 600 mg Tablet 600 mg PO Q6HR PRN (Reason: Pain, Mild (1-3)) Qty: 100 RF: 0 Referrals: Rosa Peralta MD [Primary Care Provider] -
[2018-10-03 12:26] VITALS: BP 109/72; PULSE 67; O2SAT 99
== END 2018-10-03 12:27 | disposition home or self-care (01) ==
PROVIDERS: Emergency Provider Emergency Medicine; PCP Family Medicine
DX: S80.212A Abrasion, left knee, initial encounter (principal); S93.502A Unspecified sprain of left great toe, initial encounter; W19.XXXA Unspecified fall, initial encounter
CPT/HCPCS: 73562; 73630; 99282; 99283

== ENCOUNTER → 2018-12-06 13:01 | Outpatient (CLI) | payer OTHER, MEDICAID, SELFPAY ==
--- NOTE | 2018-12-06 | DI.RAD.S_ITS ---
PROCEDURE: XR CHEST 2V INDICATIONS: SHORTNESS OF BREATH TECHNIQUE: 2 views of the chest were acquired. COMPARISON: None. FINDINGS: Surgical changes and devices: None. Lungs and pleura: Lungs are clear. No pleural effusions or pneumothorax. Mediastinum: Mediastinal contours are normal. Heart size is normal. Bones and chest wall: No suspicious bony abnormalities. Soft tissues appear unremarkable. IMPRESSION: Normal for age, source of current shortness of breath symptoms is not seen. Dictated by: Matt Kline M.D. on 12/06/2018 at 14:09 Approved by: Matt Kline M.D. on 12/06/2018 at 14:09
--- NOTE | 2018-12-13 15:59 | PM.PFT.1 ---
Pulmonary Function Test Referral & Results Date Patient Seen: 12/06/18 Requesting provider: Rosa Peralta Indication: Shortness of breath Results: The spirometry demonstrates an FVC of 4.37 L which is 105% of predicted. The FEV1 was measured at 3.55 L which is 102% of predicted. The FEV1/FVC ratio was 81 which is 96% of predicted. Following the administration of bronchodilator there was no appreciable change to above normal numbers. Lung volumes show an SVC of 4.45 L which is 113% of predicted. The diffusing capacity was measured at 20.78 which is 101% of predicted. The maximum voluntary ventilation was normal Interpretation: This study demonstrates normal pulmonary function
== END ==
PROVIDERS: PCP Family Medicine; Visit Provider Family Medicine
DX: R06.02 Shortness of breath (principal); J98.8 Other specified respiratory disorders
CPT/HCPCS: 71046; 94060; 94726; 94729

== ENCOUNTER → 2019-01-14 11:29 | Outpatient (CLI) | payer OTHER, MEDICAID, SELFPAY ==
--- NOTE | 2019-01-14 | DI.US.S_ITS ---
PROCEDURE: US PELVIC COMPLETE INDICATIONS: PELVIC AND PERINEAL PAIN TECHNIQUE: Real-time scanning was performed of the pelvic organs, with image documentation. Additional endovaginal scanning was necessary due to incomplete visualization of the adnexal and endometrial structures by transabdominal scanning. COMPARISON: [facility], , US PELVIC COMPLETE, 12/08/2016, 3:06. FINDINGS: Transabdominal scanning: Limited scanning through the kidneys shows no hydronephrosis. No pathologic free abdominal or pelvic fluid. Endovaginal scanning: Uterus: Uterus is normal in size at 5.3 x 4.5 x 8.0 cm, retroverted. The endometrium measures 10.0 mm in combined thickness. Ovaries: The right ovary measures 3.1 x 2.5 x 4.2 cm and contains a 1.1 cm simple cyst. The left ovary measures 3.3 x 2.1 x 2.3 cm. IMPRESSION: Normal pelvic ultrasound with incidental note made of a right adnexal simple cyst measuring only 1.1 cm in maximal dimension. Source of pain is not seen. Dictated by: Matt Kline M.D. on 01/14/2019 at 13:31 Approved by: Matt Kline M.D. on 01/14/2019 at 13:49
== END ==
PROVIDERS: PCP Family Medicine; Visit Provider Family Medicine
DX: R10.2 Pelvic and perineal pain (principal); N94.89 Other specified conditions associated with female genital organs and menstrual cycle
CPT/HCPCS: 76830; 76856